=== PATIENT | female | born 1950 | race Caucasian/White ===

== ENCOUNTER 2017-10-29 18:37 | Inpatient (IN) ==
[2017-10-29] MEDS ORDERED: Fluticasone Propionate Nasal 50 MCG/SPRAY BOTTLE NS PRN (18:40)
[2017-10-29] MEDS: *HR* Rivaroxaban 10 MG TABLET PO SCH (19:09)
[2017-10-29] MEDS: Magnesium Oxide 400 MG TABLET PO SCH (20:21)
[2017-10-29] MEDS: traMADol 50 MG TABLET PO PRN (20:21)
[2017-10-29] MEDS: (Omega-3s/Dha/Epa/Fish Oil [Fish Oil 1,200 Mg Softgel]) PO SCH (20:22)
[2017-10-30] MEDS: *HR* OxyCODONE Immed Rel 5 MG TABLET PO PRN ×4 (00:10→19:59)
[2017-10-30] MEDS: traMADol 50 MG TABLET PO PRN ×3 (04:30→15:13)
[2017-10-30] MEDS ORDERED: Ascorbic Acid 500 MG TABLET PO SCH (09:00)
[2017-10-30] MEDS: Cholecalciferol (D-3) 1,000 UNIT TABLET PO SCH (09:22)
[2017-10-30] MEDS: Multivit/Ca/Min/Fe/FA 1 TAB TABLET PO SCH (09:22)
[2017-10-30] MEDS: hydroCHLOROthiazide 25 MG TABLET PO SCH (09:22)
[2017-10-30] MEDS: Loratadine 10 MG TABLET PO SCH (09:22)
[2017-10-30] MEDS: Lisinopril 20 MG TABLET PO SCH (09:22)
[2017-10-30] MEDS: Magnesium Oxide 400 MG TABLET PO SCH ×2 (09:22→19:59)
[2017-10-30] MEDS: OMEGA3S PO SCH (09:23)
[2017-10-30] MEDS: C E ZINC COPPER PO SCH (09:23)
[2017-10-30] MEDS: [UNRECOGNIZED DRUG - OTHER] PO SCH (09:23)
[2017-10-30] MEDS: (Omega-3s/Dha/Epa/Fish Oil [Fish Oil 1,200 Mg Softgel]) PO SCH ×2 (09:23→19:59)
[2017-10-30] MEDS: (Ubidecarenone/Vit E Acetate [Co Q-10 100 Mg Softgel]) PO SCH (09:23)
[2017-10-30] MEDS: LUT PO SCH (09:23)
[2017-10-30] MEDS: Diltiazem CD (24hr) 120 MG CAPSULE PO SCH (09:32)
[2017-10-30] MEDS: Triamcinolone Acet 0.1% CRM 15 GM TUBE TP SCH (09:34)
--- NOTE | 2017-10-30 14:55 | Internal Med History&Physical ---
Date of Encounter: 10/30/17 Time of Encounter: 14:20 Assessment and Plan (1) Status post total hip replacement, left Current visit: No Status: Acute Stable. PT and OT evaluations have been done. She will continue Xarelto for history of AF and DVT prophylaxis. (2) Acute blood loss anemia Current visit: No Status: Acute We will monitor CBC. Check anemia testing in a.m. (3) Atrial fibrillation Current visit: No Status: Chronic Remains in normal sinus rhythm. Continue Xarelto and Rythmol Qualifiers: Atrial fibrillation type: paroxysmal Qualified Code(s): I48.0 - Paroxysmal atrial fibrillation (4) HTN (hypertension) Current visit: No Status: Chronic Continue HCTZ, lisinopril, and diltiazem. Qualifiers: Hypertension type: essential hypertension Qualified Code(s): I10 - Essential (primary) hypertension (5) Gout Current visit: No Status: Chronic Uric acid level was 6.0 on 01/26/2017. Continue allopurinol. Qualifiers: Gout site: unspecified site Gout etiology: unspecified cause Chronicity: unspecified Qualified Code(s): M10.9 - Gout, unspecified Internal Medicine - H&P: HPI Chief complaint: Left hip replacement Admitted From: Hospital to Hospital Transfer Plans for Post Hospital Care: Home History of present illness: Ms. Becker is a 67 year old female who underwent elective left total hip replacement 10/26/2017 by : At [facility]. Her postop course was remarkable from using 2 units packed red blood cells. She was stable otherwise was transferred to [facility] swing bed October 29 for rehabilitation therapy prior to returning to independent living at home. Her [place] skeletal history is significant for previous bilateral carpal tunnel surgeries, left replacement, right hip surgery, right knee surgery, bilateral shoulder surgeries and history of gout. Past Med Surg Social Fam HX - Past Medical History Medical history: arthritis, asthma, atrial fibrillation, GERD, hyperlipidemia, hypertension Psychiatric history: anxiety, depression - Past Surgical History Surgical History: cholecystectomy, knee replacement, orthopedic, other - Social History Smoking Status: Former smoker Smokeless Tobacco Status: No Alcohol use: none Drug use: none - Family History Father Hx Family Cancer: Yes (Leukemia) Mother Hx Family Cardiac Disorders: Yes (CHF) Internal Medicine - H&P: Meds Allopurinol [Zyloprim 100 MG] 100 mg PO DAILY 10/26/17 [History] Ascorbate Calcium [Vitamin C] 500 mg PO DAILY 10/26/17 [History] Atorvastatin [Lipitor] 40 mg PO HS 10/26/17 [History] C,E,Zinc,Copper 11/Ywsxd2v/Lut [Ocuvite Adult 50 Plus Softgel] 1 cap PO DAILY [History] Calcium Carbonate/Vitamin D3 [Calcium 600 + Vit D Tablet] 1 tab PO DAILY [History] Cetirizine HCl [Zyrtec] 10 mg PO DAILY 10/26/17 [History] Esomeprazole Magnesium [Nexium 24Hr] 20 mg PO DAILY 10/26/17 [History] Ferrous Sulfate [Iron] 325 mg PO DAILY 10/26/17 [History] Fluticasone Propionate Nasal [Flonase] 1 spr NS DAILY PRN 10/26/17 [History] Hydrochlorothiazide [Microzide] 12.5 mg PO DAILY 10/26/17 [History] Magnesium Oxide [Magnesium] 400 mg PO BID 10/26/17 [History] Meclizine HCl [Verticalm] 25 mg PO BID PRN 10/26/17 [History] Montelukast [Singulair] 10 mg PO HS 10/26/17 [History] Multivitamin [One Daily Multivitamin] 1 tab PO DAILY 10/26/17 [History] [place]-3S/Dha/Epa/Fish Oil [Fish Oil 1,200 mg Softgel] 1 cap PO BID 10/26/17 [ History] Propafenone [Rhythmol] 150 mg PO Q8H 10/26/17 [History] Quinapril HCl [Accupril] 20 mg PO DAILY 10/26/17 [History] Rivaroxaban [Xarelto] 20 mg PO DAILY 10/26/17 [History] Sertraline [Zoloft] 100 mg PO DAILY 10/26/17 [History] Triamcinolone Acet 0.1% CRM [Kenalog] 1 appl TP DAILY 10/26/17 [History] Ubidecarenone/Vit E Acetate [Co Q-10 100 mg Softgel] 1 cap PO DAILY 10/26/17 [ History] dilTIAZem HCl [Diltiazem 24Hr ER] 120 mg PO DAILY 10/26/17 [History] 3 Allergy/AdvReac Type Severity Reaction Status Date / Time pregabalin [From Lyrica] Allergy See Verified 10/26/17 12:05 Comments All Systems PM: A 10-system review of systems was performed and is negative for pertinent findings except as documented above in the HPI. Review of systems: Gen.: She states her weight has been stable the past few months Cardiovascular: She has history of hypertension. She has had atrial fibrillation with cardioversion 2 in 2017. She is now on Rythmol and has maintained NSR. There is no history of heart failure and echocardiogram 2016 showed LVEF of 55-60% with no significant valvular abnormalities. There was LAE at 4.80 cm. There is no history of DVT or pulmonary embolus Respiratory: She smoked from age [age]. She has no documented chronic lung disease. She has been diagnosed with JABIER but states she cannot tolerate CPAP/ BiPAP. GI: She has had cholecystectomy. She denies disorders of her liver or exocrine pancreas : She denies hematuria dysuria or kidney stones Neurologic: She has had vertigo intermittently for several years. She takes meclizine regularly. She denies large distribution strokes or seizures. Endocrine: She states she is prediabetic but hemoglobin A1c 18 2017 was elevated at 6.3%. He has hyperlipidemia but denies thyroid disease Hematology/oncology: She has developed anemia postoperatively with hemoglobin 8.3 yesterday. She denies internal malignancies or blood disorders Psychiatric: She has anxiety depression. She denies other mental health issues. [place] skeletal: As per history of present illness - Constitutional Vitals: Temp Pulse Resp BP Pulse Ox 98.6 F 75 17 103/68 98 10/29/17 19:08 10/30/17 09:45 10/29/17 19:08 10/29/17 19:08 10/30/17 09:45 Exam: Gen.: She is well-developed well-nourished female resting comfortably in bed who appears in no acute distress HEENT: Head is atraumatic and normocephalic. Eyes: EOMI. There is no scleral icterus. Mouth: Mucosa is moist. Neck: Supple and nontender. There is no thyromegaly or adenopathy noted. Heart: Regular without murmurs gallops or ectopics Lungs: No wheezes or crackles are heard. Abdomen: Soft and nontender. No masses or guarding are noted. Extremities: There is 0-trace edema bilaterally of the dorsum the feet and lower anterior shins. Dorsalis pedis and posttibial pulses are trace to 1+ palpable bilaterally. She has surgical dressing over the left upper lateral thigh area from recent hip surgery. There is a second dressing more proximal from robotic surgery attachment. Neurologic: Mental status: She is talkative and a good historian. Cranial nerves: Smile is symmetric. Forehead wrinkles bilaterally. Tongue protrudes midline. EOMI. Motor: There is no pronator drift. Cerebellar: Finger to nose is intact bilaterally. Skin: Warm and dry
[2017-10-30] MEDS: *HR* Rivaroxaban 10 MG TABLET PO SCH (17:40)
[2017-10-30] MEDS: Ascorbic Acid 500 MG TABLET PO SCH (17:52)
[2017-10-31] MEDS: traMADol 50 MG TABLET PO PRN ×4 (00:56→23:53)
[2017-10-31] MEDS: *HR* OxyCODONE Immed Rel 5 MG TABLET PO PRN ×3 (04:55→22:02)
[2017-10-31] MEDS: Ascorbic Acid 500 MG TABLET PO SCH (04:55)
[2017-10-31 06:29] LABS: Basophils % 0.4 %; Eosinophils # 0.3 K/mcL (0.0-0.6); Eosinophils % 3.2 %; Immature Granulocytes % 1.9 % (0-4); Lymphocytes % 12.1 %; Mean Corpuscular HGB Conc 32.1 g/dL (31.6-35.5); Mean Corpuscular Hemoglobin 28.8 pg (28.0-33.3); Mean Corpuscular Volume 89.5 fL (83.0-100.0); Monocytes # 0.8 K/mcL (0.0-1.3); Monocytes % 9.3 %; Neutrophils # 6.3 K/mcL (1.6-8.9); Platelet Count 184 K/mcL (140-400); Red Blood Count 3.13 M/mcL (3.82-4.97); Red Cell Distribution Width 14.6 % (11.5-14.5); Segmented Neutrophils % 73.1 %
[2017-10-31 06:45] LABS: BUN/Creatinine Ratio 40 (6-26); Blood Urea Nitrogen 31 mg/dL (8-23); Carbon Dioxide 28 mEq/L (23-29); Chloride 101 mEq/L (98-107); Glucose 115 mg/dL (70-105); Osmolality,Calculated 291 (280-300); Potassium 3.7 mEq/L (3.5-5.1); Sodium 137 mEq/L (136-145); eGFR For African Americans > 60 (> 60); eGFR For Non-African Americans > 60 (> 60)
[2017-10-31] MEDS: hydroCHLOROthiazide 25 MG TABLET PO SCH (08:34)
[2017-10-31] MEDS: Cholecalciferol (D-3) 1,000 UNIT TABLET PO SCH (08:34)
[2017-10-31] MEDS: Magnesium Oxide 400 MG TABLET PO SCH ×2 (08:35→20:35)
[2017-10-31] MEDS: Multivit/Ca/Min/Fe/FA 1 TAB TABLET PO SCH (08:35)
[2017-10-31] MEDS: Triamcinolone Acet 0.1% CRM 15 GM TUBE TP SCH (08:35)
[2017-10-31] MEDS: Lisinopril 20 MG TABLET PO SCH (08:35)
[2017-10-31] MEDS: Diltiazem CD (24hr) 120 MG CAPSULE PO SCH (08:35)
[2017-10-31] MEDS: Loratadine 10 MG TABLET PO SCH (08:35)
[2017-10-31] MEDS: (Ubidecarenone/Vit E Acetate [Co Q-10 100 Mg Softgel]) PO SCH (08:36)
[2017-10-31] MEDS: C E ZINC COPPER PO SCH (08:36)
[2017-10-31] MEDS: (Omega-3s/Dha/Epa/Fish Oil [Fish Oil 1,200 Mg Softgel]) PO SCH ×2 (08:36→20:35)
[2017-10-31] MEDS: [UNRECOGNIZED DRUG - OTHER] PO SCH (08:36)
[2017-10-31] MEDS: OMEGA3S PO SCH (08:36)
[2017-10-31] MEDS: LUT PO SCH (08:36)
[2017-10-31 09:47] LABS: % Iron Saturation 13 % (15-50); Ferritin 857 ng/ml (10-120); Iron 27 mcg/dL (50-170); Transferrin 154 mg/dL (203-362)
[2017-10-31 10:02] LABS: Vitamin B12 244 pg/mL (250-1100)
[2017-10-31 10:05] LABS: Folate > 22.3 ng/mL (3.0-16.0)
[2017-10-31] MEDS: *HR* Rivaroxaban 10 MG TABLET PO SCH (18:03)
--- NOTE | 2017-10-31 18:45 | Internal Med Progress Note ---
Date of Encounter: 10/31/17 Time of Encounter: 18:35 - Assessment and plan (1) Status post total hip replacement, left Current Visit: No Status: Acute Assessment and plan: October 31. Continue Xarelto and therapeutic interventions. (2) Acute blood loss anemia Current Visit: No Status: Acute Assessment and plan: October 31. Hemoglobin improved to 9.0. Anemia testing showed iron 27, transferrin saturation 13%, transferrin 154, ferritin 857, B12 244, and folate greater than 22.3. We will give B12 supplement and continue ferrous sulfate with vitamin C. (3) Atrial fibrillation Current Visit: No Status: Chronic Assessment and plan: October 31. Continue Xarelto Qualifiers: Atrial fibrillation type: paroxysmal Qualified Code(s): I48.0 - Paroxysmal atrial fibrillation (4) HTN (hypertension) Current Visit: No Status: Chronic Assessment and plan: October 31. Continue HCTZ, lisinopril, and diltiazem. Qualifiers: Hypertension type: essential hypertension Qualified Code(s): I10 - Essential (primary) hypertension (5) Gout Current Visit: No Status: Chronic Assessment and plan: October 31. Continue allopurinol Qualifiers: Gout site: unspecified site Gout etiology: unspecified cause Chronicity: unspecified Qualified Code(s): M10.9 - Gout, unspecified - Subjective Interval history: October 31. She has no specific complaints. She noticed bleeding when she scratched her scalp. She has also noticed additional bruising on her legs. - Constitutional Vitals: Temp Pulse Resp BP Pulse Ox 98.9 F 72 18 116/64 96 10/31/17 06:00 10/31/17 06:00 10/31/17 06:00 10/31/17 06:00 10/31/17 06:00 Exam: She is resting comfortably in bed and appears in no acute distress. Her scalp was not actively bleeding. There is white cream at the site where she scratched. She has expected evolutionary changes in ecchymoses from surgery on her legs including a left mid lower medial thigh ecchymosis. I reviewed her medications. I discussed pertinent lab findings with her. Internal Medicine: Result - Labs CBC & Chem 7: 10/31/17 05:44 10/31/17 05:44 Labs: Short CBC 10/31/17 Range/Units 05:44 WBC 8.6 (4.3-11.1) K/mcL Hgb 9.0 L (11.5-15.4) g/dL Hct 28.0 L (35.3-44.9) % Plt Count 184 (140-400) K/mcL Neutrophils # 6.3 (1.6-8.9) K/mcL [facility] 10/31/17 05:44 Sodium 137 Potassium 3.7 Chloride 101 Carbon Dioxide 28 BUN 31 H Creatinine 0.77 Glucose 115 H Calcium 9.0 Consult Discharge Plan - Plan Referrals: Nelson Little DO [Primary Care Provider] - 1 week
[2017-10-31] MEDS: Cyanocobalamin (B-12) 1,000 MCG TABLET PO SCH (20:35)
[2017-11-01 00:17] LABS: Magnesium 1.7 mg/dL (1.6-2.6)
[2017-11-01] MEDS: *HR* OxyCODONE Immed Rel 5 MG TABLET PO PRN ×3 (03:43→23:33)
[2017-11-01] MEDS: traMADol 50 MG TABLET PO PRN ×3 (05:53→20:05)
[2017-11-01] MEDS: Ascorbic Acid 500 MG TABLET PO SCH (05:53)
[2017-11-01] MEDS: Multivit/Ca/Min/Fe/FA 1 TAB TABLET PO SCH (08:59)
[2017-11-01] MEDS: Lisinopril 20 MG TABLET PO SCH (08:59)
[2017-11-01] MEDS: Cyanocobalamin (B-12) 1,000 MCG TABLET PO SCH (08:59)
[2017-11-01] MEDS: Magnesium Oxide 400 MG TABLET PO SCH ×2 (08:59→20:05)
[2017-11-01] MEDS: hydroCHLOROthiazide 25 MG TABLET PO SCH (09:00)
[2017-11-01] MEDS: Diltiazem CD (24hr) 120 MG CAPSULE PO SCH (09:00)
[2017-11-01] MEDS: Loratadine 10 MG TABLET PO SCH (09:00)
[2017-11-01] MEDS: Cholecalciferol (D-3) 1,000 UNIT TABLET PO SCH (09:01)
[2017-11-01] MEDS: [UNRECOGNIZED DRUG - OTHER] PO SCH (09:01)
[2017-11-01] MEDS: OMEGA3S PO SCH (09:01)
[2017-11-01] MEDS: LUT PO SCH (09:01)
[2017-11-01] MEDS: C E ZINC COPPER PO SCH (09:01)
[2017-11-01] MEDS: (Omega-3s/Dha/Epa/Fish Oil [Fish Oil 1,200 Mg Softgel]) PO SCH ×2 (09:01→23:32)
[2017-11-01] MEDS: (Ubidecarenone/Vit E Acetate [Co Q-10 100 Mg Softgel]) PO SCH (09:01)
[2017-11-01] MEDS: Triamcinolone Acet 0.1% CRM 15 GM TUBE TP SCH (09:01)
[2017-11-01] MEDS: *HR* Rivaroxaban 10 MG TABLET PO SCH (18:38)
[2017-11-02] MEDS: traMADol 50 MG TABLET PO PRN ×2 (03:13→09:00)
[2017-11-02] MEDS: *HR* OxyCODONE Immed Rel 5 MG TABLET PO PRN ×2 (05:25→21:57)
[2017-11-02] MEDS: Ascorbic Acid 500 MG TABLET PO SCH (06:41)
[2017-11-02] MEDS: Cholecalciferol (D-3) 1,000 UNIT TABLET PO SCH (08:59)
[2017-11-02] MEDS: Loratadine 10 MG TABLET PO SCH (08:59)
[2017-11-02] MEDS: Diltiazem CD (24hr) 120 MG CAPSULE PO SCH (08:59)
[2017-11-02] MEDS: Multivit/Ca/Min/Fe/FA 1 TAB TABLET PO SCH (08:59)
[2017-11-02] MEDS: Cyanocobalamin (B-12) 1,000 MCG TABLET PO SCH (09:00)
[2017-11-02] MEDS: Lisinopril 20 MG TABLET PO SCH (09:00)
[2017-11-02] MEDS: Magnesium Oxide 400 MG TABLET PO SCH ×2 (09:00→19:54)
[2017-11-02] MEDS: hydroCHLOROthiazide 25 MG TABLET PO SCH (09:00)
[2017-11-02] MEDS: Triamcinolone Acet 0.1% CRM 15 GM TUBE TP SCH (09:01)
[2017-11-02] MEDS: (Ubidecarenone/Vit E Acetate [Co Q-10 100 Mg Softgel]) PO SCH (09:04)
[2017-11-02] MEDS: (Omega-3s/Dha/Epa/Fish Oil [Fish Oil 1,200 Mg Softgel]) PO SCH ×2 (09:04→23:11)
[2017-11-02] MEDS: C E ZINC COPPER PO SCH (09:05)
[2017-11-02] MEDS: LUT PO SCH (09:05)
[2017-11-02] MEDS: [UNRECOGNIZED DRUG - OTHER] PO SCH (09:05)
[2017-11-02] MEDS: OMEGA3S PO SCH (09:05)
--- NOTE | 2017-11-02 12:23 | Internal Med Progress Note ---
Date of Encounter: 11/02/17 Time of Encounter: 12:15 - Assessment and plan (1) Status post total hip replacement, left Current Visit: No Status: Acute Assessment and plan: October 31. Continue Xarelto and therapeutic interventions. November 02. Will add scheduled Duragesic patch for pain. Continue prn tramadol and oxycodone as presently ordered. (2) Acute blood loss anemia Current Visit: No Status: Acute Assessment and plan: October 31. Hemoglobin improved to 9.0. Anemia testing showed iron 27, transferrin saturation 13%, transferrin 154, ferritin 857, B12 244, and folate greater than 22.3. We will give B12 supplement and continue ferrous sulfate with vitamin C. November 02. Recheck labs in a.m. (3) Atrial fibrillation Current Visit: No Status: Chronic Assessment and plan: October 31. Continue Xarelto Qualifiers: Atrial fibrillation type: paroxysmal Qualified Code(s): I48.0 - Paroxysmal atrial fibrillation (4) HTN (hypertension) Current Visit: No Status: Chronic Assessment and plan: October 31. Continue HCTZ, lisinopril, and diltiazem. Qualifiers: Hypertension type: essential hypertension Qualified Code(s): I10 - Essential (primary) hypertension (5) Gout Current Visit: No Status: Chronic Assessment and plan: October 31. Continue allopurinol Qualifiers: Gout site: unspecified site Gout etiology: unspecified cause Chronicity: unspecified Qualified Code(s): M10.9 - Gout, unspecified (6) Urinary frequency Current Visit: Yes Status: Acute Assessment and plan: Will order UA with C/S and check postvoid residual volume. - Subjective Interval history: October 31. She has no specific complaints. She noticed bleeding when she scratched her scalp. She has also noticed additional bruising on her legs. November 02. She complains of constant pain never less than 7/10 in her left hip. She has noted no further bleeding. She also complains of urinary frequency. - Constitutional Vitals: Temp Pulse Resp BP Pulse Ox 97.6 F 64 16 115/58 96 11/02/17 06:27 11/02/17 06:27 11/02/17 06:27 11/02/17 06:27 11/02/17 06:27 Exam: She is sitting in a chair at bedside. Her affect is overall cheerful. She has trace edema in her lower anterior shins. Ecchymosis in her left medial thigh shows expected evolution changes. I reviewed her medications and past lab results. Internal Medicine: Result - Labs CBC & Chem 7: 10/31/17 05:44 10/31/17 05:44 Consult Discharge Plan - Plan Referrals: Nelson Little DO [Primary Care Provider] - 1 week
[2017-11-02 15:07] LABS: Bilirubin,Urine Negative (Negative); Blood,Urine Negative (Negative); Clarity,Urine Clear (Clear); Color,Urine Yellow (Yellow); Glucose,Urine (UA) Normal (Normal); Ketones,Urine Negative (Negative); Leukocyte Esterase,Urine Negative (Negative); Nitrite,Urine Negative (Negative); PH,Urine 5.5 pH Units (5.0-8.0); Protein,Urine Negative (Neg-Trace); Urobilinogen,Urine Normal (Normal)
[2017-11-02] MEDS: *HR* Rivaroxaban 10 MG TABLET PO SCH (16:53)
[2017-11-02] MEDS: *HR* FentaNYL PATCH 12 MCG PATCH TD SCH (16:54)
[2017-11-03] MEDS: traMADol 50 MG TABLET PO PRN ×3 (03:19→17:19)
[2017-11-03 05:37] LABS: Basophils # 0.1 K/mcL (0.0-0.2); Basophils % 0.5 %; Eosinophils # 0.3 K/mcL (0.0-0.6); Eosinophils % 3.3 %; Hematocrit 29.7 % (35.3-44.9); Hemoglobin 9.5 g/dL (11.5-15.4); Immature Granulocytes % 3.3 % (0-4); Lymphocytes # 1.3 K/mcL (0.6-4.6); Lymphocytes % 13.7 %; Mean Corpuscular Hemoglobin 28.8 pg (28.0-33.3); Mean Platelet Volume 11.4 fL (9.4-12.4); Monocytes # 0.7 K/mcL (0.0-1.3); Monocytes % 7.7 %; Neutrophils # 6.6 K/mcL (1.6-8.9); Platelet Count 277 K/mcL (140-400); Red Cell Distribution Width 14.3 % (11.5-14.5); Segmented Neutrophils % 71.5 %
[2017-11-03 05:57] LABS: BUN/Creatinine Ratio 27 (6-26); Blood Urea Nitrogen 19 mg/dL (8-23); Calcium 9.2 mg/dL (8.6-10.3); Carbon Dioxide 31 mEq/L (23-29); Chloride 101 mEq/L (98-107); Glucose 116 mg/dL (70-105); Magnesium 1.7 mg/dL (1.6-2.6); Osmolality,Calculated 291 (280-300); Potassium 4.2 mEq/L (3.5-5.1); Sodium 139 mEq/L (136-145); eGFR For African Americans > 60 (> 60); eGFR For Non-African Americans > 60 (> 60)
[2017-11-03] MEDS: Ascorbic Acid 500 MG TABLET PO SCH (06:53)
[2017-11-03] MEDS: *HR* OxyCODONE Immed Rel 5 MG TABLET PO PRN ×3 (06:53→20:24)
[2017-11-03] MEDS: Magnesium Oxide 400 MG TABLET PO SCH ×2 (08:49→20:24)
[2017-11-03] MEDS: Cholecalciferol (D-3) 1,000 UNIT TABLET PO SCH (08:49)
[2017-11-03] MEDS: Lisinopril 20 MG TABLET PO SCH (08:49)
[2017-11-03] MEDS: Multivit/Ca/Min/Fe/FA 1 TAB TABLET PO SCH (08:49)
[2017-11-03] MEDS: Diltiazem CD (24hr) 120 MG CAPSULE PO SCH (08:50)
[2017-11-03] MEDS: hydroCHLOROthiazide 25 MG TABLET PO SCH (08:50)
[2017-11-03] MEDS: Loratadine 10 MG TABLET PO SCH (08:50)
[2017-11-03] MEDS: Cyanocobalamin (B-12) 1,000 MCG TABLET PO SCH (08:51)
[2017-11-03] MEDS: Triamcinolone Acet 0.1% CRM 15 GM TUBE TP SCH (08:51)
[2017-11-03] MEDS: (Ubidecarenone/Vit E Acetate [Co Q-10 100 Mg Softgel]) PO SCH (11:00)
[2017-11-03] MEDS: [UNRECOGNIZED DRUG - OTHER] PO SCH (11:01)
[2017-11-03] MEDS: C E ZINC COPPER PO SCH (11:01)
[2017-11-03] MEDS: (Omega-3s/Dha/Epa/Fish Oil [Fish Oil 1,200 Mg Softgel]) PO SCH ×2 (11:01→20:24)
[2017-11-03] MEDS: OMEGA3S PO SCH (11:01)
[2017-11-03] MEDS: LUT PO SCH (11:01)
--- NOTE | 2017-11-03 12:06 | Internal Med Progress Note ---
Date of Encounter: 11/03/17 Time of Encounter: 11:50 - Assessment and plan (1) Status post total hip replacement, left Current Visit: No Status: Acute Assessment and plan: October 31. Continue Xarelto and therapeutic interventions. November 02. Will add scheduled Duragesic patch for pain. Continue prn tramadol and oxycodone as presently ordered. November 03. Pain has significantly lessened with Duragesic patch. Continue present regimen. (2) Acute blood loss anemia Current Visit: No Status: Acute Assessment and plan: October 31. Hemoglobin improved to 9.0. Anemia testing showed iron 27, transferrin saturation 13%, transferrin 154, ferritin 857, B12 244, and folate greater than 22.3. We will give B12 supplement and continue ferrous sulfate with vitamin C. November 02. Recheck labs in a.m. November 03. Hemoglobin improved to 9.5. Continue present regimen. (3) Atrial fibrillation Current Visit: No Status: Chronic Assessment and plan: October 31. Continue Xarelto Qualifiers: Atrial fibrillation type: paroxysmal Qualified Code(s): I48.0 - Paroxysmal atrial fibrillation (4) HTN (hypertension) Current Visit: No Status: Chronic Assessment and plan: October 31. Continue HCTZ, lisinopril, and diltiazem. Qualifiers: Hypertension type: essential hypertension Qualified Code(s): I10 - Essential (primary) hypertension (5) Gout Current Visit: No Status: Chronic Assessment and plan: October 31. Continue allopurinol Qualifiers: Gout site: unspecified site Gout etiology: unspecified cause Chronicity: unspecified Qualified Code(s): M10.9 - Gout, unspecified (6) Urinary frequency Current Visit: Yes Status: Acute Assessment and plan: November 02. Will order UA with C/S and check postvoid residual volume. November 03. UA was unremarkable. Continue Ditropan prn. - Subjective Interval history: October 31. She has no specific complaints. She noticed bleeding when she scratched her scalp. She has also noticed additional bruising on her legs. November 02. She complains of constant pain never less than 7/10 in her left hip. She has noted no further bleeding. She also complains of urinary frequency. November 03. She has no new complaints and feels better. Post void residual was 53 mL yesterday. She had resolution of bladder spasm with single dose of Ditropan. - Constitutional Vitals: Temp Pulse Resp BP Pulse Ox 98.6 F 73 18 117/64 95 11/03/17 06:00 11/03/17 06:00 11/03/17 06:00 11/03/17 06:00 11/03/17 06:00 Exam: She is resting comfortably in bed and appears in no acute distress. Her affect is bright and cheerful. I reviewed her medications and lab results. Internal Medicine: Result - Labs CBC & Chem 7: 11/03/17 05:05 11/03/17 05:05 Labs: Short CBC 11/03/17 Range/Units 05:05 WBC 9.2 (4.3-11.1) K/mcL Hgb 9.5 L (11.5-15.4) g/dL Hct 29.7 L (35.3-44.9) % Plt Count 277 D (140-400) K/mcL Neutrophils # 6.6 (1.6-8.9) K/mcL BMP 11/03/17 05:05 Sodium 139 Potassium 4.2 Chloride 101 Carbon Dioxide 31 H BUN 19 Creatinine 0.71 Glucose 116 H Calcium 9.2 Urine 11/02/17 Range/Units 14:04 Urine Color Yellow (Yellow) Urine Clarity Clear (Clear) Urine pH 5.5 (5.0-8.0) pH Units Ur Specific [place] 1.010 (1.010-1.025) Urine Protein Negative (Neg-Trace) mg/dL Urine Glucose (UA) Normal (Normal) mg/dL Consult Discharge Plan - Plan Referrals: Nelson Little DO [Primary Care Provider] - 1 week
[2017-11-03] MEDS: *HR* Rivaroxaban 10 MG TABLET PO SCH (17:05)
[2017-11-04] MEDS: traMADol 50 MG TABLET PO PRN ×4 (00:30→21:27)
[2017-11-04] MEDS: *HR* OxyCODONE Immed Rel 5 MG TABLET PO PRN ×4 (03:42→23:50)
[2017-11-04] MEDS: Ascorbic Acid 500 MG TABLET PO SCH (05:48)
[2017-11-04] MEDS: Loratadine 10 MG TABLET PO SCH (09:34)
[2017-11-04] MEDS: Diltiazem CD (24hr) 120 MG CAPSULE PO SCH (09:34)
[2017-11-04] MEDS: Multivit/Ca/Min/Fe/FA 1 TAB TABLET PO SCH (09:34)
[2017-11-04] MEDS: hydroCHLOROthiazide 25 MG TABLET PO SCH (09:34)
[2017-11-04] MEDS: Magnesium Oxide 400 MG TABLET PO SCH ×2 (09:35→21:27)
[2017-11-04] MEDS: Cholecalciferol (D-3) 1,000 UNIT TABLET PO SCH (09:35)
[2017-11-04] MEDS: Lisinopril 20 MG TABLET PO SCH (09:35)
[2017-11-04] MEDS: Cyanocobalamin (B-12) 1,000 MCG TABLET PO SCH (09:35)
[2017-11-04] MEDS: (Ubidecarenone/Vit E Acetate [Co Q-10 100 Mg Softgel]) PO SCH (09:42)
[2017-11-04] MEDS: LUT PO SCH (09:42)
[2017-11-04] MEDS: C E ZINC COPPER PO SCH (09:42)
[2017-11-04] MEDS: Triamcinolone Acet 0.1% CRM 15 GM TUBE TP SCH (09:42)
[2017-11-04] MEDS: [UNRECOGNIZED DRUG - OTHER] PO SCH (09:42)
[2017-11-04] MEDS: (Omega-3s/Dha/Epa/Fish Oil [Fish Oil 1,200 Mg Softgel]) PO SCH ×2 (09:42→21:28)
[2017-11-04] MEDS: OMEGA3S PO SCH (09:42)
[2017-11-04] MEDS: *HR* Rivaroxaban 10 MG TABLET PO SCH (17:48)
[2017-11-05] MEDS: Ascorbic Acid 500 MG TABLET PO SCH (06:04)
[2017-11-05] MEDS: *HR* OxyCODONE Immed Rel 5 MG TABLET PO PRN ×3 (06:04→20:56)
[2017-11-05] MEDS: Loratadine 10 MG TABLET PO SCH (08:02)
[2017-11-05] MEDS: Cholecalciferol (D-3) 1,000 UNIT TABLET PO SCH (08:02)
[2017-11-05] MEDS: Lisinopril 20 MG TABLET PO SCH (08:02)
[2017-11-05] MEDS: Cyanocobalamin (B-12) 1,000 MCG TABLET PO SCH (08:02)
[2017-11-05] MEDS: hydroCHLOROthiazide 25 MG TABLET PO SCH (08:02)
[2017-11-05] MEDS: Multivit/Ca/Min/Fe/FA 1 TAB TABLET PO SCH (08:05)
[2017-11-05] MEDS: Diltiazem CD (24hr) 120 MG CAPSULE PO SCH (08:14)
[2017-11-05] MEDS: Magnesium Oxide 400 MG TABLET PO SCH ×2 (08:16→20:49)
[2017-11-05] MEDS: OMEGA3S PO SCH (08:16)
[2017-11-05] MEDS: Triamcinolone Acet 0.1% CRM 15 GM TUBE TP SCH (08:16)
[2017-11-05] MEDS: LUT PO SCH (08:16)
[2017-11-05] MEDS: [UNRECOGNIZED DRUG - OTHER] PO SCH (08:16)
[2017-11-05] MEDS: C E ZINC COPPER PO SCH (08:16)
[2017-11-05] MEDS: (Omega-3s/Dha/Epa/Fish Oil [Fish Oil 1,200 Mg Softgel]) PO SCH ×2 (08:17→20:49)
[2017-11-05] MEDS: (Ubidecarenone/Vit E Acetate [Co Q-10 100 Mg Softgel]) PO SCH (08:17)
[2017-11-05] MEDS: *HR* FentaNYL PATCH 12 MCG PATCH TD SCH (13:13)
[2017-11-05] MEDS ORDERED: Lisinopril 20 MG TABLET PO SCH (14:59)
--- NOTE | 2017-11-05 14:59 | Internal Med Progress Note ---
Date of Encounter: 11/05/17 Time of Encounter: 14:50 - Assessment and plan (1) Status post total hip replacement, left Current Visit: No Status: Acute Assessment and plan: October 31. Continue Xarelto and therapeutic interventions. November 02. Will add scheduled Duragesic patch for pain. Continue prn tramadol and oxycodone as presently ordered. November 03. Pain has significantly lessened with Duragesic patch. Continue present regimen. (2) Acute blood loss anemia Current Visit: No Status: Acute Assessment and plan: October 31. Hemoglobin improved to 9.0. Anemia testing showed iron 27, transferrin saturation 13%, transferrin 154, ferritin 857, B12 244, and folate greater than 22.3. We will give B12 supplement and continue ferrous sulfate with vitamin C. November 02. Recheck labs in a.m. November 03. Hemoglobin improved to 9.5. Continue present regimen. (3) Atrial fibrillation Current Visit: No Status: Chronic Assessment and plan: October 31. Continue Xarelto Qualifiers: Atrial fibrillation type: paroxysmal Qualified Code(s): I48.0 - Paroxysmal atrial fibrillation (4) HTN (hypertension) Current Visit: No Status: Chronic Assessment and plan: October 31. Continue HCTZ, lisinopril, and diltiazem. November 05. Blood pressure borderline low. We will decrease lisinopril to 10 mg daily. Qualifiers: Hypertension type: essential hypertension Qualified Code(s): I10 - Essential (primary) hypertension (5) Gout Current Visit: No Status: Chronic Assessment and plan: October 31. Continue allopurinol Qualifiers: Gout site: unspecified site Gout etiology: unspecified cause Chronicity: unspecified Qualified Code(s): M10.9 - Gout, unspecified (6) Urinary frequency Current Visit: Yes Status: Acute Assessment and plan: November 02. Will order UA with C/S and check postvoid residual volume. November 03. UA was unremarkable. Continue Ditropan prn. - Subjective Interval history: October 31. She has no specific complaints. She noticed bleeding when she scratched her scalp. She has also noticed additional bruising on her legs. November 02. She complains of constant pain never less than 7/10 in her left hip. She has noted no further bleeding. She also complains of urinary frequency. November 03. She has no new complaints and feels better. Post void residual was 53 mL yesterday. She had resolution of bladder spasm with single dose of Ditropan. November 05. She has no new complaints and feels better. She has had no further bladder spasms. She states her pain has lessened. - Constitutional Vitals: Temp Pulse Resp BP Pulse Ox 97.8 F 66 16 95/45 98 11/04/17 19:06 11/04/17 19:06 11/04/17 19:06 11/04/17 19:06 11/04/17 19:06 Exam: She is resting comfortably in bed and appears in no acute distress. Her affect is bright and cheerful. I reviewed her medications and lab results. Internal Medicine: Result - Labs CBC & Chem 7: 11/03/17 05:05 11/03/17 05:05 Consult Discharge Plan - Plan Referrals: Nelson Little DO [Primary Care Provider] - 1 week
[2017-11-05] MEDS: *HR* Rivaroxaban 10 MG TABLET PO SCH (16:51)
[2017-11-06] MEDS: *HR* OxyCODONE Immed Rel 5 MG TABLET PO PRN ×3 (06:30→20:27)
[2017-11-06] MEDS: Ascorbic Acid 500 MG TABLET PO SCH (06:31)
[2017-11-06] MEDS: Cholecalciferol (D-3) 1,000 UNIT TABLET PO SCH (08:36)
[2017-11-06] MEDS: Multivit/Ca/Min/Fe/FA 1 TAB TABLET PO SCH (08:38)
[2017-11-06] MEDS: hydroCHLOROthiazide 25 MG TABLET PO SCH (08:38)
[2017-11-06] MEDS: Diltiazem CD (24hr) 120 MG CAPSULE PO SCH (08:39)
[2017-11-06] MEDS: traMADol 50 MG TABLET PO PRN ×2 (08:39→23:44)
[2017-11-06] MEDS: Cyanocobalamin (B-12) 1,000 MCG TABLET PO SCH (08:39)
[2017-11-06] MEDS: LUT PO SCH (08:40)
[2017-11-06] MEDS: [UNRECOGNIZED DRUG - OTHER] PO SCH (08:40)
[2017-11-06] MEDS: OMEGA3S PO SCH (08:40)
[2017-11-06] MEDS: Triamcinolone Acet 0.1% CRM 15 GM TUBE TP SCH (08:40)
[2017-11-06] MEDS: Magnesium Oxide 400 MG TABLET PO SCH ×2 (08:40→20:27)
[2017-11-06] MEDS: (Omega-3s/Dha/Epa/Fish Oil [Fish Oil 1,200 Mg Softgel]) PO SCH ×2 (08:40→20:28)
[2017-11-06] MEDS: Loratadine 10 MG TABLET PO SCH (08:40)
[2017-11-06] MEDS: C E ZINC COPPER PO SCH (08:40)
[2017-11-06] MEDS: (Ubidecarenone/Vit E Acetate [Co Q-10 100 Mg Softgel]) PO SCH (08:41)
[2017-11-06] MEDS: *HR* Rivaroxaban 10 MG TABLET PO SCH (17:59)
[2017-11-07] MEDS: Ascorbic Acid 500 MG TABLET PO SCH (06:31)
[2017-11-07] MEDS: traMADol 50 MG TABLET PO PRN ×2 (06:36→13:56)
[2017-11-07] MEDS: Cholecalciferol (D-3) 1,000 UNIT TABLET PO SCH (10:46)
[2017-11-07] MEDS: Loratadine 10 MG TABLET PO SCH (10:46)
[2017-11-07] MEDS: Magnesium Oxide 400 MG TABLET PO SCH ×2 (10:46→20:52)
[2017-11-07] MEDS: hydroCHLOROthiazide 25 MG TABLET PO SCH (10:47)
[2017-11-07] MEDS: Cyanocobalamin (B-12) 1,000 MCG TABLET PO SCH (10:47)
[2017-11-07] MEDS: Multivit/Ca/Min/Fe/FA 1 TAB TABLET PO SCH (10:47)
[2017-11-07] MEDS: Diltiazem CD (24hr) 120 MG CAPSULE PO SCH (10:47)
[2017-11-07] MEDS: LUT PO SCH (10:48)
[2017-11-07] MEDS: OMEGA3S PO SCH (10:48)
[2017-11-07] MEDS: Triamcinolone Acet 0.1% CRM 15 GM TUBE TP SCH (10:48)
[2017-11-07] MEDS: [UNRECOGNIZED DRUG - OTHER] PO SCH (10:48)
[2017-11-07] MEDS: (Omega-3s/Dha/Epa/Fish Oil [Fish Oil 1,200 Mg Softgel]) PO SCH ×2 (10:48→20:53)
[2017-11-07] MEDS: C E ZINC COPPER PO SCH (10:48)
[2017-11-07] MEDS: (Ubidecarenone/Vit E Acetate [Co Q-10 100 Mg Softgel]) PO SCH (10:49)
[2017-11-07] MEDS: *HR* OxyCODONE Immed Rel 5 MG TABLET PO PRN ×2 (12:25→20:53)
[2017-11-07] MEDS: valACYclovir 500 MG TABLET PO SCH (15:32)
[2017-11-07] MEDS: *HR* Rivaroxaban 10 MG TABLET PO SCH (18:15)
[2017-11-08] MEDS: valACYclovir 500 MG TABLET PO SCH ×3 (00:57→17:48)
[2017-11-08] MEDS: traMADol 50 MG TABLET PO PRN ×2 (00:57→14:14)
[2017-11-08] MEDS: *HR* OxyCODONE Immed Rel 5 MG TABLET PO PRN (06:43)
[2017-11-08] MEDS: Ascorbic Acid 500 MG TABLET PO SCH (06:43)
[2017-11-08] MEDS: Loratadine 10 MG TABLET PO SCH (08:57)
[2017-11-08] MEDS: Diltiazem CD (24hr) 120 MG CAPSULE PO SCH (08:57)
[2017-11-08] MEDS: *HR* FentaNYL PATCH 12 MCG PATCH TD SCH (08:58)
[2017-11-08] MEDS: hydroCHLOROthiazide 25 MG TABLET PO SCH (08:58)
[2017-11-08] MEDS: Magnesium Oxide 400 MG TABLET PO SCH ×2 (08:59→21:18)
[2017-11-08] MEDS: (Omega-3s/Dha/Epa/Fish Oil [Fish Oil 1,200 Mg Softgel]) PO SCH ×2 (08:59→21:14)
[2017-11-08] MEDS: OMEGA3S PO SCH (08:59)
[2017-11-08] MEDS: [UNRECOGNIZED DRUG - OTHER] PO SCH (08:59)
[2017-11-08] MEDS: Triamcinolone Acet 0.1% CRM 15 GM TUBE TP SCH (08:59)
[2017-11-08] MEDS: C E ZINC COPPER PO SCH (08:59)
[2017-11-08] MEDS: LUT PO SCH (08:59)
[2017-11-08] MEDS: Cyanocobalamin (B-12) 1,000 MCG TABLET PO SCH (09:00)
[2017-11-08] MEDS: (Ubidecarenone/Vit E Acetate [Co Q-10 100 Mg Softgel]) PO SCH (09:00)
[2017-11-08] MEDS: Multivit/Ca/Min/Fe/FA 1 TAB TABLET PO SCH (09:00)
[2017-11-08] MEDS: Cholecalciferol (D-3) 1,000 UNIT TABLET PO SCH (09:00)
--- NOTE | 2017-11-08 16:53 | Internal Med Progress Note ---
Date of Encounter: 11/08/17 Time of Encounter: 16:40 - Assessment and plan (1) Status post total hip replacement, left Current Visit: No Status: Acute Assessment and plan: October 31. Continue Xarelto and therapeutic interventions. November 02. Will add scheduled Duragesic patch for pain. Continue prn tramadol and oxycodone as presently ordered. November 03. Pain has significantly lessened with Duragesic patch. Continue present regimen. November 08. Continue present treatment. Anticipate discharge home in 2 days. (2) Acute blood loss anemia Current Visit: No Status: Acute Assessment and plan: October 31. Hemoglobin improved to 9.0. Anemia testing showed iron 27, transferrin saturation 13%, transferrin 154, ferritin 857, B12 244, and folate greater than 22.3. We will give B12 supplement and continue ferrous sulfate with vitamin C. November 02. Recheck labs in a.m. November 03. Hemoglobin improved to 9.5. Continue present regimen. (3) Atrial fibrillation Current Visit: No Status: Chronic Assessment and plan: October 31. Continue Xarelto Qualifiers: Atrial fibrillation type: paroxysmal Qualified Code(s): I48.0 - Paroxysmal atrial fibrillation (4) HTN (hypertension) Current Visit: No Status: Chronic Assessment and plan: October 31. Continue HCTZ, lisinopril, and diltiazem. November 05. Blood pressure borderline low. We will decrease lisinopril to 10 mg daily. November 08. Blood pressure stable on present regimen. Continue. Qualifiers: Hypertension type: essential hypertension Qualified Code(s): I10 - Essential (primary) hypertension (5) Gout Current Visit: No Status: Chronic Assessment and plan: October 31. Continue allopurinol Qualifiers: Gout site: unspecified site Gout etiology: unspecified cause Chronicity: unspecified Qualified Code(s): M10.9 - Gout, unspecified (6) Urinary frequency Current Visit: Yes Status: Acute Assessment and plan: November 02. Will order UA with C/S and check postvoid residual volume. November 03. UA was unremarkable. Continue Ditropan prn. - Subjective Interval history: October 31. She has no specific complaints. She noticed bleeding when she scratched her scalp. She has also noticed additional bruising on her legs. November 02. She complains of constant pain never less than 7/10 in her left hip. She has noted no further bleeding. She also complains of urinary frequency. November 03. She has no new complaints and feels better. Post void residual was 53 mL yesterday. She had resolution of bladder spasm with single dose of Ditropan. November 05. She has no new complaints and feels better. She has had no further bladder spasms. She states her pain has lessened. November 08. She has no new complaints and states she is nearly pain-free now. - Constitutional Vitals: Temp Pulse Resp BP Pulse Ox 97.6 F 60 20 114/53 98 11/08/17 14:11 11/08/17 14:11 11/08/17 14:11 11/08/17 14:11 11/08/17 14:11 Exam: She is resting comfortably in bed and appears in no acute distress. Her affect is bright and cheerful. I reviewed her indications and lab results. Internal Medicine: Result - Labs CBC & Chem 7: 11/03/17 05:05 11/03/17 05:05 Consult Discharge Plan - Plan Referrals: Nelson Little DO [Primary Care Provider] - 1 week
[2017-11-08] MEDS: *HR* Rivaroxaban 10 MG TABLET PO SCH (17:47)
[2017-11-09] MEDS: traMADol 50 MG TABLET PO PRN ×3 (00:21→16:24)
[2017-11-09] MEDS: valACYclovir 500 MG TABLET PO SCH ×3 (00:21→20:20)
[2017-11-09] MEDS: *HR* OxyCODONE Immed Rel 5 MG TABLET PO PRN ×3 (02:51→20:18)
[2017-11-09] MEDS: Ascorbic Acid 500 MG TABLET PO SCH (05:35)
[2017-11-09] MEDS: Cholecalciferol (D-3) 1,000 UNIT TABLET PO SCH (08:42)
[2017-11-09] MEDS: Loratadine 10 MG TABLET PO SCH (08:42)
[2017-11-09] MEDS: Magnesium Oxide 400 MG TABLET PO SCH ×2 (08:42→20:18)
[2017-11-09] MEDS: Multivit/Ca/Min/Fe/FA 1 TAB TABLET PO SCH (08:42)
[2017-11-09] MEDS: OMEGA3S PO SCH (08:43)
[2017-11-09] MEDS: [UNRECOGNIZED DRUG - OTHER] PO SCH (08:43)
[2017-11-09] MEDS: Triamcinolone Acet 0.1% CRM 15 GM TUBE TP SCH (08:43)
[2017-11-09] MEDS: hydroCHLOROthiazide 25 MG TABLET PO SCH (08:43)
[2017-11-09] MEDS: Cyanocobalamin (B-12) 1,000 MCG TABLET PO SCH (08:43)
[2017-11-09] MEDS: LUT PO SCH (08:43)
[2017-11-09] MEDS: C E ZINC COPPER PO SCH (08:43)
[2017-11-09] MEDS: Diltiazem CD (24hr) 120 MG CAPSULE PO SCH (08:43)
[2017-11-09] MEDS: (Omega-3s/Dha/Epa/Fish Oil [Fish Oil 1,200 Mg Softgel]) PO SCH ×2 (08:44→20:19)
[2017-11-09] MEDS: (Ubidecarenone/Vit E Acetate [Co Q-10 100 Mg Softgel]) PO SCH (08:44)
[2017-11-09] MEDS: *HR* Rivaroxaban 10 MG TABLET PO SCH (20:18)
[2017-11-10] MEDS: traMADol 50 MG TABLET PO PRN ×3 (00:22→20:52)
[2017-11-10] MEDS: valACYclovir 500 MG TABLET PO SCH ×3 (00:26→17:13)
[2017-11-10] MEDS: Ascorbic Acid 500 MG TABLET PO SCH (06:06)
[2017-11-10] MEDS: Loratadine 10 MG TABLET PO SCH (08:32)
[2017-11-10] MEDS: Cyanocobalamin (B-12) 1,000 MCG TABLET PO SCH (08:32)
[2017-11-10] MEDS: Multivit/Ca/Min/Fe/FA 1 TAB TABLET PO SCH (08:32)
[2017-11-10] MEDS: Magnesium Oxide 400 MG TABLET PO SCH ×2 (08:32→20:52)
[2017-11-10] MEDS: Diltiazem CD (24hr) 120 MG CAPSULE PO SCH (08:32)
[2017-11-10] MEDS: Cholecalciferol (D-3) 1,000 UNIT TABLET PO SCH (08:32)
[2017-11-10] MEDS: LUT PO SCH (08:33)
[2017-11-10] MEDS: C E ZINC COPPER PO SCH (08:33)
[2017-11-10] MEDS: Triamcinolone Acet 0.1% CRM 15 GM TUBE TP SCH (08:33)
[2017-11-10] MEDS: (Omega-3s/Dha/Epa/Fish Oil [Fish Oil 1,200 Mg Softgel]) PO SCH ×2 (08:33→23:38)
[2017-11-10] MEDS: [UNRECOGNIZED DRUG - OTHER] PO SCH (08:33)
[2017-11-10] MEDS: (Ubidecarenone/Vit E Acetate [Co Q-10 100 Mg Softgel]) PO SCH (08:33)
[2017-11-10] MEDS: OMEGA3S PO SCH (08:33)
--- NOTE | 2017-11-10 14:53 | Internal Med Progress Note ---
Date of Encounter: 11/10/17 Time of Encounter: 12:15 - Assessment and plan (1) Status post total hip replacement, left Current Visit: No Status: Acute Assessment and plan: October 31. Continue Xarelto and therapeutic interventions. November 02. Will add scheduled Duragesic patch for pain. Continue prn tramadol and oxycodone as presently ordered. November 03. Pain has significantly lessened with Duragesic patch. Continue present regimen. November 08. Continue present treatment. Anticipate discharge home in 2 days. November 10. Anticipate discharge home in a.m. (2) Acute blood loss anemia Current Visit: No Status: Acute Assessment and plan: October 31. Hemoglobin improved to 9.0. Anemia testing showed iron 27, transferrin saturation 13%, transferrin 154, ferritin 857, B12 244, and folate greater than 22.3. We will give B12 supplement and continue ferrous sulfate with vitamin C. November 02. Recheck labs in a.m. November 03. Hemoglobin improved to 9.5. Continue present regimen. (3) Atrial fibrillation Current Visit: No Status: Chronic Assessment and plan: October 31. Continue Xarelto Qualifiers: Atrial fibrillation type: paroxysmal Qualified Code(s): I48.0 - Paroxysmal atrial fibrillation (4) HTN (hypertension) Current Visit: No Status: Chronic Assessment and plan: October 31. Continue HCTZ, lisinopril, and diltiazem. November 05. Blood pressure borderline low. We will decrease lisinopril to 10 mg daily. November 08. Blood pressure stable on present regimen. Continue. November 10. Blood pressure has been borderline low. HCTZ and lisinopril have been discontinued. Continue diltiazem. Qualifiers: Hypertension type: essential hypertension Qualified Code(s): I10 - Essential (primary) hypertension (5) Gout Current Visit: No Status: Chronic Assessment and plan: October 31. Continue allopurinol Qualifiers: Gout site: unspecified site Gout etiology: unspecified cause Chronicity: unspecified Qualified Code(s): M10.9 - Gout, unspecified (6) Urinary frequency Current Visit: Yes Status: Acute Assessment and plan: November 02. Will order UA with C/S and check postvoid residual volume. November 03. UA was unremarkable. Continue Ditropan prn. - Subjective Interval history: October 31. She has no specific complaints. She noticed bleeding when she scratched her scalp. She has also noticed additional bruising on her legs. November 02. She complains of constant pain never less than 7/10 in her left hip. She has noted no further bleeding. She also complains of urinary frequency. November 03. She has no new complaints and feels better. Post void residual was 53 mL yesterday. She had resolution of bladder spasm with single dose of Ditropan. November 05. She has no new complaints and feels better. She has had no further bladder spasms. She states her pain has lessened. November 08. She has no new complaints and states she is nearly pain-free now. November 10. She has no new complaints except dizziness which she describes as a vertigo sensation. It is not consistent with movement of her head. She denies URI symptoms. - Constitutional Vitals: Temp Pulse Resp BP Pulse Ox 97.8 F 66 16 109/57 96 11/10/17 06:43 11/10/17 06:43 11/10/17 06:43 11/10/17 06:43 11/10/17 06:43 Exam: She is sitting in a chair at bedside resting comfortably. Her affect is bright and cheerful. I reviewed her medications. Internal Medicine: Result - Labs CBC & Chem 7: 11/03/17 05:05 11/03/17 05:05 Consult Discharge Plan - Plan Referrals: Nelson Little DO [Primary Care Provider] - 1 week
[2017-11-10] MEDS: *HR* Rivaroxaban 10 MG TABLET PO SCH (17:14)
[2017-11-11] MEDS: valACYclovir 500 MG TABLET PO SCH ×2 (00:15→08:28)
[2017-11-11] MEDS: Ascorbic Acid 500 MG TABLET PO SCH (06:26)
[2017-11-11 08:07] VITALS: BP 138/76
[2017-11-11] MEDS: Cholecalciferol (D-3) 1,000 UNIT TABLET PO SCH (08:28)
[2017-11-11] MEDS: Cyanocobalamin (B-12) 1,000 MCG TABLET PO SCH (08:28)
[2017-11-11] MEDS: Loratadine 10 MG TABLET PO SCH (08:28)
[2017-11-11] MEDS: Diltiazem CD (24hr) 120 MG CAPSULE PO SCH (08:28)
[2017-11-11] MEDS: Multivit/Ca/Min/Fe/FA 1 TAB TABLET PO SCH (08:28)
[2017-11-11] MEDS: *HR* FentaNYL PATCH 12 MCG PATCH TD SCH (08:29)
[2017-11-11] MEDS: Magnesium Oxide 400 MG TABLET PO SCH (08:34)
[2017-11-11] MEDS: Triamcinolone Acet 0.1% CRM 15 GM TUBE TP SCH (08:34)
[2017-11-11] MEDS: [UNRECOGNIZED DRUG - OTHER] PO SCH (08:35)
[2017-11-11] MEDS: OMEGA3S PO SCH (08:35)
[2017-11-11] MEDS: LUT PO SCH (08:35)
[2017-11-11] MEDS: (Ubidecarenone/Vit E Acetate [Co Q-10 100 Mg Softgel]) PO SCH (08:35)
[2017-11-11] MEDS: C E ZINC COPPER PO SCH (08:35)
[2017-11-11] MEDS: (Omega-3s/Dha/Epa/Fish Oil [Fish Oil 1,200 Mg Softgel]) PO SCH (08:35)
[2017-11-11] MEDS: traMADol 50 MG TABLET PO PRN (08:41)
--- NOTE | 2017-11-11 09:38 | Discharge Summary ---
Date of Encounter: 11/11/17 Time of Encounter: 09:20 - Discharge Diagnosis (1) Status post total hip replacement, left Priority: Primary Status: Acute (2) Acute blood loss anemia Priority: Secondary Status: Acute (3) Atrial fibrillation Priority: Secondary Status: Chronic Qualifiers: Atrial fibrillation type: paroxysmal Qualified Code(s): I48.0 - Paroxysmal atrial fibrillation (4) HTN (hypertension) Priority: Secondary Status: Chronic Qualifiers: Hypertension type: essential hypertension Qualified Code(s): I10 - Essential (primary) hypertension (5) Gout Priority: Secondary Status: Chronic Qualifiers: Gout site: unspecified site Gout etiology: unspecified cause Chronicity: unspecified Qualified Code(s): M10.9 - Gout, unspecified (6) Urinary frequency Priority: Secondary Status: Acute Hospital course: Ms. Becker is a 67 year old female who underwent elective left total hip replacement 10/26/2017 by At [facility]. Her postop course was remarkable from using 2 units packed red blood cells. She was stable otherwise was transferred to [facility] swing bed October 29 for rehabilitation therapy prior to returning to independent living at home. Initial orders were written by the discharging physicians at [facility]. I saw her on October 30 and performed the swing bed history and physical. She had physical therapy and occupational therapy evaluations with ongoing intervention. She remained on Xarelto for history of AF and DVT prophylaxis. Duragesic patch was scheduled at low dose for pain relief. Tramadol was used when necessary. She made satisfactory progress and was ready for discharge home on November 11. Anemia testing showed iron 27, transferrin saturation 13%, transferrin 154, ferritin 857, B12 244, and folate greater than 22.3. She was started on oral B12 supplement and this will be continued at discharge. She will also continue ferrous sulfate and vitamin C. Hemoglobin was improved at 9.5 on 11/03/2017. She will be discharged home and follow with her PCP Dr. Nelson Little within 1 week. She will follow with her orthopedist later today. - Time Spent with Patient Total time spent providing and/or coordinating discharge services: - Discharge Medications Prescriptions: Cyanocobalamin (B-12) [Vitamin B12] 1,000 mcg PO DAILY #30 tablet Cyclobenzaprine [Flexeril] 5 mg PO TID PRN #15 tablet PRN Reason: Muscle Spasm Oxybutynin [Ditropan] 5 mg PO BID PRN #10 tablet PRN Reason: Spasms Tramadol HCl [Tramadol HCl ER] 50 mg PO Q4H 3 Days #12 tab.er.24h Home Medications: Allopurinol [Zyloprim 100 MG] 100 mg PO DAILY 10/26/17 [History] Ascorbate Calcium [Vitamin C] 500 mg PO DAILY 10/26/17 [History] Atorvastatin [Lipitor] 40 mg PO HS 10/26/17 [History] C,E,Zinc,Copper 11/Wnbvq2e/Lut [Ocuvite Adult 50 Plus Softgel] 1 cap PO DAILY [History] Calcium Carbonate/Vitamin D3 [Calcium 600 + Vit D Tablet] 1 tab PO DAILY [History] Cetirizine HCl [Zyrtec] 10 mg PO DAILY 10/26/17 [History] Ferrous Sulfate [Iron] 325 mg PO DAILY 10/26/17 [History] Fluticasone Propionate Nasal [Flonase] 1 spr NS DAILY PRN 10/26/17 [History] Magnesium Oxide [Magnesium] 400 mg PO BID 10/26/17 [History] Meclizine HCl [Verticalm] 25 mg PO BID PRN 10/26/17 [History] Montelukast [Singulair] 10 mg PO HS 10/26/17 [History] Multivitamin [One Daily Multivitamin] 1 tab PO DAILY 10/26/17 [History] [place]-3S/Dha/Epa/Fish Oil [Fish Oil 1,200 mg Softgel] 1 cap PO BID 10/26/17 [ History] Propafenone [Rhythmol] 150 mg PO Q8H 10/26/17 [History] Rivaroxaban [Xarelto] 20 mg PO DAILY 10/26/17 [History] Sertraline [Zoloft] 100 mg PO DAILY 10/26/17 [History] Triamcinolone Acet 0.1% CRM [Kenalog] 1 appl TP DAILY 10/26/17 [History] Ubidecarenone/Vit E Acetate [Co Q-10 100 mg Softgel] 1 cap PO DAILY 10/26/17 [ History] dilTIAZem HCl [Diltiazem 24Hr ER] 120 mg PO DAILY 10/26/17 [History] Cyanocobalamin (B-12) [Vitamin B12] 1,000 mcg PO DAILY #30 tablet 11/11/17 [Rx] Cyclobenzaprine [Flexeril] 5 mg PO TID PRN #15 tablet 11/11/17 [Rx] Esomeprazole Magnesium [Nexium 24Hr] 20 mg PO DAILY PRN #0 11/11/17 [Rx] Oxybutynin [Ditropan] 5 mg PO BID PRN #10 tablet 11/11/17 [Rx] Tramadol HCl [Tramadol HCl ER] 50 mg PO Q4H 3 Days #12 tab.er.24h 11/11/17 [Rx] Allergies/Adverse Reactions: 3 Allergy/AdvReac Type Severity Reaction Status Date / Time pregabalin [From Lyrica] Allergy See Verified 10/26/17 12:05 Comments Date of admission: 10/29/17 18:37 Primary care physician: Nelson Little DO Consults: 10/29/17 18:54 Consult to Occupational Therapy [CONS] Routine Comment: weakness Reason for Consult: weakness Does patient have active BEDREST order?: No Is patient medically & hemodynamically stable?: Yes Patient assessed for mobility or mobilized this visit?: No Consult to Physical Therapy [CONS] Routine Comment: weakness Reason for Consult: weakness Does patient have active BEDREST order?: No Is patient medically & hemodynamically stable?: Yes Patient assessed for mobility or mobilized this visit?: No Consult to Coffee Taster [CONS] Routine Reason for SW Consult: swing bed - Constitutional Vitals: Temp Pulse Resp BP Pulse Ox 98.7 F 69 16 138/76 95 11/11/17 07:55 11/11/17 07:55 11/11/17 07:55 11/11/17 07:55 11/11/17 07:55 - Patient Status Disposition: Home Health Service Functional capacity at discharge: uses cane/walker Overall status at discharge: patient is progressing back to baseline - Discharge Instructions Follow Up With: Nelson Little DO [Primary Care Provider] - 1 week - Diet and Activity Activity: as per physical therapy Diet: advance to your usual diet
--- NOTE | 2017-11-11 09:43 | Physician Discharge Referral ---
Home Health/Hosp Referral Info Transfer to: Home Health Attending Provider: Yevgeniy Provider in Charge Post Discharge: PCP (Nelson Little D.O.) - Diagnosis (1) Status post total hip replacement, left Priority: Primary Status: Acute (2) Acute blood loss anemia Priority: Secondary Status: Acute (3) Atrial fibrillation Priority: Secondary Status: Chronic (4) HTN (hypertension) Priority: Secondary Status: Chronic (5) Gout Priority: Secondary Status: Chronic (6) Urinary frequency Priority: Secondary Status: Acute - Respiratory Orders Smoking Cessation: Smoking cessation has been advised. For more information, call the [place] Tobacco Quit Line at 2-210-HHMZ-NOW. - Diet/Nutrition Diet/Nutrition Orders: No Concentrated Sweets - Activity Activity Orders: Walker - Services Needed Following services are medically necessary services: Nursing, Home Health Aide, Physical Therapy, Occupational Therapy - Transfer Medications Prescriptions: Cyanocobalamin (B-12) [Vitamin B12] 1,000 mcg PO DAILY #30 tablet Cyclobenzaprine [Flexeril] 5 mg PO TID PRN #15 tablet PRN Reason: Muscle Spasm Oxybutynin [Ditropan] 5 mg PO BID PRN #10 tablet PRN Reason: Spasms Tramadol HCl [Tramadol HCl ER] 50 mg PO Q4H 3 Days #12 tab.er.24h Home Medications: Allopurinol [Zyloprim 100 MG] 100 mg PO DAILY 10/26/17 [History] Ascorbate Calcium [Vitamin C] 500 mg PO DAILY 10/26/17 [History] Atorvastatin [Lipitor] 40 mg PO HS 10/26/17 [History] C,E,Zinc,Copper 11/Aosua8j/Lut [Ocuvite Adult 50 Plus Softgel] 1 cap PO DAILY [History] Calcium Carbonate/Vitamin D3 [Calcium 600 + Vit D Tablet] 1 tab PO DAILY [History] Cetirizine HCl [Zyrtec] 10 mg PO DAILY 10/26/17 [History] Ferrous Sulfate [Iron] 325 mg PO DAILY 10/26/17 [History] Fluticasone Propionate Nasal [Flonase] 1 spr NS DAILY PRN 10/26/17 [History] Magnesium Oxide [Magnesium] 400 mg PO BID 10/26/17 [History] Meclizine HCl [Verticalm] 25 mg PO BID PRN 10/26/17 [History] Montelukast [Singulair] 10 mg PO HS 10/26/17 [History] Multivitamin [One Daily Multivitamin] 1 tab PO DAILY 10/26/17 [History] [place]-3S/Dha/Epa/Fish Oil [Fish Oil 1,200 mg Softgel] 1 cap PO BID 10/26/17 [ History] Propafenone [Rhythmol] 150 mg PO Q8H 10/26/17 [History] Rivaroxaban [Xarelto] 20 mg PO DAILY 10/26/17 [History] Sertraline [Zoloft] 100 mg PO DAILY 10/26/17 [History] Triamcinolone Acet 0.1% CRM [Kenalog] 1 appl TP DAILY 10/26/17 [History] Ubidecarenone/Vit E Acetate [Co Q-10 100 mg Softgel] 1 cap PO DAILY 10/26/17 [ History] dilTIAZem HCl [Diltiazem 24Hr ER] 120 mg PO DAILY 10/26/17 [History] Cyanocobalamin (B-12) [Vitamin B12] 1,000 mcg PO DAILY #30 tablet 11/11/17 [Rx] Cyclobenzaprine [Flexeril] 5 mg PO TID PRN #15 tablet 11/11/17 [Rx] Esomeprazole Magnesium [Nexium 24Hr] 20 mg PO DAILY PRN #0 11/11/17 [Rx] Oxybutynin [Ditropan] 5 mg PO BID PRN #10 tablet 11/11/17 [Rx] Tramadol HCl [Tramadol HCl ER] 50 mg PO Q4H 3 Days #12 tab.er.24h 11/11/17 [Rx] Allergies/Adverse Reactions: 3 Allergy/AdvReac Type Severity Reaction Status Date / Time pregabalin [From Lyrica] Allergy See Verified 10/26/17 12:05 Comments Certification: Further, I certify that my clinical findings support that this patient is homebound (i.e. absences from home require considerable and taxing effort and are for medical reasons or [employer] services or infrequently or short duration when for other reasons) because: Homebound Reason: Leaving home requires considerable and taxing effort due to condition (DJD status post left total hip replacement) Attestation: My signature below is to certify that this patient is under my care and that I, or nurse practitioner, or a physician's kindergarten instructional assistant working with me, has a face-to -face encounter with this patient.
== END 2017-11-11 10:22 | disposition home health service (06) | DRG 560 ==
LOC: INPPIK 18:37 → PREOBSVTOIN 10-30 18:16 → INPPIK 10-31 11:00
PROVIDERS: ADMIT Internal Medicine; ATTEND Internal Medicine

== ENCOUNTER 2018-07-02 12:21 | Inpatient (IN) ==
[2018-07-03] MEDS ORDERED: Fluticasone Propionate Nasal 50 MCG/SPRAY BOTTLE NS PRN (17:52)
[2018-07-03] MEDS: Magnesium Oxide 400 MG TABLET PO SCH (20:27)
[2018-07-03] MEDS: *HR* OxyCODONE/APAP 5/325 TABLET PO PRN (20:27)
[2018-07-04] MEDS: *HR* OxyCODONE/APAP 5/325 TABLET PO PRN ×4 (02:43→21:31)
[2018-07-04 06:47] LABS: Basophils % 0.3 %; Eosinophils # 0.2 K/mcL (0.0-0.6); Eosinophils % 3.2 %; Hematocrit 27.9 % (35.3-44.9); Hemoglobin 8.9 g/dL (11.5-15.4); Lymphocytes # 0.7 K/mcL (0.6-4.6); Lymphocytes % 11.7 %; Mean Corpuscular HGB Conc 31.9 g/dL (31.6-35.5); Mean Corpuscular Volume 90.9 fL (83.0-100.0); Mean Platelet Volume 12.1 fL (9.4-12.4); Monocytes # 0.6 K/mcL (0.0-1.3); Monocytes % 10.1 %; Neutrophils # 4.6 K/mcL (1.6-8.9); Platelet Count 163 K/mcL (140-400); Red Blood Count 3.07 M/mcL (3.82-4.97); Segmented Neutrophils % 73.7 %
[2018-07-04 06:50] LABS: INR 1.5; Prothrombin Time 16.8 Seconds (9.4-12.1)
[2018-07-04 06:52] LABS: Activated Partial Thrombo Time 39.3 Seconds (26.0-36.0)
[2018-07-04 07:09] LABS: BUN/Creatinine Ratio 21 (6-26); Blood Urea Nitrogen 14 mg/dL (8-23); Calcium 8.9 mg/dL (8.6-10.3); Carbon Dioxide 31 mEq/L (23-29); Chloride 101 mEq/L (98-107); Glucose 110 mg/dL (70-105); Osmolality,Calculated 289 (280-300); Potassium 3.9 mEq/L (3.5-5.1); Sodium 139 mEq/L (136-145); eGFR For Non-African Americans > 60 (> 60)
[2018-07-04] MEDS: Magnesium Oxide 400 MG TABLET PO SCH ×2 (08:17→21:31)
[2018-07-04] MEDS: Diltiazem CD (24hr) 120 MG CAPSULE PO SCH (08:17)
[2018-07-04] MEDS: Multivit/Ca/Min/Fe/FA 1 TAB TABLET PO SCH (08:18)
[2018-07-04] MEDS: Ascorbic Acid 500 MG TABLET PO SCH (08:19)
[2018-07-04] MEDS: Cyanocobalamin (B-12) 1,000 MCG TABLET PO SCH (08:19)
[2018-07-04] MEDS: Cholecalciferol (D-3) 1,000 UNIT TABLET PO SCH (08:19)
[2018-07-04] MEDS: (Ubidecarenone/Vit E Acetate [Co Q-10 100 Mg Softgel]) PO SCH (08:26)
[2018-07-04] MEDS ORDERED: hydroCHLOROthiazide 25 MG TABLET PO SCH (09:00)
[2018-07-04] MEDS ORDERED: LUT PO SCH (09:00)
[2018-07-04] MEDS ORDERED: OMEGA3S PO SCH (09:00)
[2018-07-04] MEDS ORDERED: C E ZINC COPPER PO SCH (09:00)
[2018-07-04] MEDS ORDERED: [UNRECOGNIZED DRUG - OTHER] PO SCH (09:00)
[2018-07-04] MEDS ORDERED: Loratadine 10 MG TABLET PO SCH (09:00)
[2018-07-04] MEDS: *HR* Rivaroxaban 10 MG TABLET PO SCH (16:06)
--- NOTE | 2018-07-04 16:16 | Internal Med History&Physical ---
Date of Encounter: 07/04/18 Time of Encounter: 16:09 Internal Medicine - H&P: HPI History of present illness: Ms. Becker is a 68 year old female Past Med Surg Social Fam HX - Past Medical History Medical history: arthritis, asthma, atrial fibrillation, coronary artery disease, fibromyalgia, GERD, hyperlipidemia, hypertension Additional medical history: diverticulitis. impaired fasting glucose. non th rombosed external hemorrhoids. obesity. allergy injection. osteoarthritis. back pain. anemia. anxiety. depression. lupus. degerneative joint disease. irregular heartbeat. high potassium. uterine polyps, extra thick lining. vertigo. lumbar stenosis & radiculopathy Psychiatric history: anxiety, depression - Past Surgical History Surgical History: cholecystectomy, hip replacement, knee replacement, orthopedic, other, other Additional surgical history: tonsillectomy and adenoidectomy. sinus surgery, unsp. dilation and curettage. carpal tunnel release- bilateral. colonoscopy. PLIF L4-S1, LAMINECTOMY L2-3 06/29/18. cardiac cath. right total shoulder replacement reverse ball socket. right shoulder replacement. left shoulder replacement. operative hysteroscopy, D&C and polupectomy with myosure. cardioversion - Social History Smoking Status: Never smoker Smokeless Tobacco Status: No Alcohol use: none Drug use: none - Family History Father Hx Family Cancer: Yes (Leukemia) Mother Hx Family Cardiac Disorders: Yes (CHF) Internal Medicine - H&P: Meds Allopurinol [Zyloprim 100 MG] 100 mg PO DAILY 10/26/17 [History] Ascorbate Calcium [Vitamin C] 500 mg PO DAILY 10/26/17 [History] C,E,Zinc,Copper 11/Hjiau1s/Lut [Ocuvite Adult 50 Plus Softgel] 1 cap PO DAILY 10/26/17 [History] Calcium Carbonate/Vitamin D3 [Calcium 600 + Vit D Tablet] 1 tab PO DAILY 10/26/17 [History] Cetirizine HCl [Zyrtec] 10 mg PO DAILY 10/26/17 [History] Ferrous Sulfate [Iron] 325 mg PO DAILY 10/26/17 [History] Fluticasone Propionate Nasal [Flonase] 1 spr NS DAILY PRN 10/26/17 [History] Magnesium Oxide [Magnesium] 400 mg PO BID 10/26/17 [History] Multivitamin [One Daily Multivitamin] 1 tab PO DAILY 10/26/17 [History] [place]-3S/Dha/Epa/Fish Oil [Fish Oil 1,200 mg Softgel] 1 cap PO BID 10/26/17 [History] Sertraline [Zoloft] 100 mg PO DAILY 10/26/17 [History] Ubidecarenone/Vit E Acetate [Co Q-10 100 mg Softgel] 1 cap PO DAILY 10/26/17 [History] dilTIAZem HCl [Diltiazem 24Hr ER] 120 mg PO DAILY 10/26/17 [History] Cyanocobalamin (B-12) [Vitamin B12] 1,000 mcg PO DAILY #30 tablet 11/11/17 [Rx] Albuterol Sulfate [Ventolin Hfa] 2 puff IH Q4H PRN 06/29/18 [History] Esomeprazole Magnesium [Nexium 24Hr] 20 mg PO DAILY 06/29/18 [History] Meclizine HCl [Verticalm] 25 mg PO BID PRN 06/29/18 [History] Montelukast [Singulair] 10 mg PO DAILY 06/29/18 [History] Propafenone [Rhythmol] 150 mg PO TID 06/29/18 [History] Quinapril HCl [Accupril] 5 - 10 mg PO DAILY 06/29/18 [History] Rivaroxaban [Xarelto] 20 mg PO DAILY 06/29/18 [History] hydroCHLOROthiazide [Hydrochlorothiazide] 12.5 mg PO DAILY 06/29/18 [History] Atorvastatin [Lipitor] 40 mg PO HS 06/30/18 [History] OxyCODONE/APAP 5/325 [Percocet 5/325 MG] 1 each PO Q6HR PRN 7 Days #28 tablet 07/03/18 [Rx] Allergy/AdvReac Type Severity Reaction Status Date / Time pregabalin [From Lyrica] Allergy SWELLING Verified 06/23/18 10:43 amitriptyline AdvReac UNSURE Verified 06/23/18 10:43 All Systems PM: A 10-system review of systems was performed and is negative for pertinent findings except as documented above in the HPI. Review of systems: Review of systems from her October 2017 [facility] hospitalization were reviewed and revised as below. Gen.: Her weight has increased from 122.152 kg on 11/04/2017 to 129.812 kg today. Cardiovascular: She has history of hypertension. She has had atrial fibrillation with cardioversion 2 in 2017. She is now on Rythmol and has maintained NSR. Echocardiogram 07/01/2018 showed LVEF of 65-70 %. The interventricular septum and posterior wall thickness measurements were elevated 1.10 and 1.30 cm respectively. There was LAE at 4.20 cm. The E/A ratio was 1.2. Estimated RVSP was normal at 30 mmHg. There was mild aortic stenosis. There is no history of DVT or pulmonary embolus. Regadenoson EST 01/25/2017 showed no perfusion or EKG changes indicating ischemia. The LVEF was > 70%. Respiratory: She smoked from age [age]. She has no documented chronic lung disease. She has been diagnosed with JABIER but states she cannot tolerate CPAP/BiPAP. GI: She has had cholecystectomy. She denies disorders of her liver or exocrine pancreas : She denies hematuria dysuria or kidney stones Neurologic: She has had vertigo intermittently for several years. She takes meclizine regularly. She denies large distribution strokes or seizures. Endocrine: She states she is prediabetic but hemoglobin A1c was 5.7% on 07/01/2018. She has hyperlipidemia but denies thyroid disease Hematology/oncology: She has anemia. Anemia workup october 2017 showed iron 27, transferrin saturation 13%, transferrin 154, ferritin 857, B12 244, and folate> 22.3. She denies internal malignancies or blood disorders Psychiatric: She has anxiety depression. She denies other mental health issues. [place] skeletal: As per history of present illness - Constitutional Vitals: Temp Pulse Resp BP Pulse Ox 97.8 F 64 16 112/71 93 07/04/18 08:07 07/04/18 08:07 07/04/18 08:07 07/04/18 08:07 07/04/18 08:07 Internal Med - H&P Results - Labs CBC & Chem 7: 07/04/18 05:40 07/04/18 05:40 Labs: Short CBC 07/04/18 Range/Units 05:40 WBC 6.2 (4.3-11.1) K/mcL Hgb 8.9 L (11.5-15.4) g/dL Hct 27.9 L (35.3-44.9) % Plt Count 163 (140-400) K/mcL Neutrophils # 4.6 (1.6-8.9) K/mcL BMP 07/04/18 05:40 Sodium 139 Potassium 3.9 Chloride 101 Carbon Dioxide 31 H BUN 14 Creatinine 0.66 Glucose 110 H Calcium 8.9
--- NOTE | 2018-07-04 16:49 | Internal Med History&Physical ---
Date of Encounter: 07/04/18 Time of Encounter: 14:10 Assessment and Plan (1) Status post lumbar spinal fusion Current visit: No Status: Acute PT and OT evaluations have been ordered. Analgesics will be given on a scheduled and prn basis. (2) Anemia Current visit: Yes Status: Acute Check anemia testing in a.m. Qualifiers: Anemia type: unspecified type Qualified Code(s): D64.9 - Anemia, unspecified (3) HTN (hypertension) Current visit: No Status: Chronic Continue lisinopril. She has declined HCTZ. Qualifiers: Hypertension type: essential hypertension Qualified Code(s): I10 - Essential (primary) hypertension (4) Gout Current visit: No Status: Chronic Check uric acid level in a.m. Qualifiers: Gout site: unspecified site Gout etiology: unspecified cause Chronicity: unspecified Qualified Code(s): M10.9 - Gout, unspecified (5) Atrial fibrillation Current visit: No Status: Chronic Remains in normal sinus rhythm. Continue Rythmol and Xarelto. Qualifiers: Atrial fibrillation type: paroxysmal Qualified Code(s): I48.0 - Paroxysmal atrial fibrillation Internal Medicine - H&P: HPI Chief complaint: Back surgery Admitted From: Hospital to Hospital Transfer Plans for Post Hospital Care: Home History of present illness: Ms. Becker is a 68 year old female who underwent elective L2/L3 laminectomy and L4-S1 interbody fusion by Dr. Eugene at [facility] for chronic back pain. Her postop course was unremarkable and she was discharged [facility] swing bed for rehabilitation therapy prior to returning to independent living. [facility] for previous bilateral carpal tunnel surgeries, bilateral hip surgery, bilateral total knee replacement, bilateral shoulder surgeries and history of gout. Past Med Surg Social Fam HX - Past Medical History Medical history: arthritis, asthma, atrial fibrillation, coronary artery disease, fibromyalgia, GERD, hyperlipidemia, hypertension Additional medical history: diverticulitis. impaired fasting glucose. non thrombosed external hemorrhoids. obesity. allergy injection. osteoarthritis. back pain. anemia. anxiety. depression. lupus. degerneative joint disease. irregular heartbeat. high potassium. uterine polyps, extra thick lining. vertigo. lumbar stenosis & radiculopathy Psychiatric history: anxiety, depression - Past Surgical History Surgical History: cholecystectomy, hip replacement, knee replacement, orthopedic, other, other Additional surgical history: tonsillectomy and adenoidectomy. sinus surgery, un sp. dilation and curettage. carpal tunnel release- bilateral. colonoscopy. PLIF L4-S1, LAMINECTOMY L2-3 06/29/18. cardiac cath. right total shoulder replacement reverse ball socket. right shoulder replacement. left shoulder replacement. operative hysteroscopy, D&C and polupectomy with myosure. cardioversion - Social History Smoking Status: Never smoker Smokeless Tobacco Status: No Alcohol use: none Drug use: none - Family History Father Hx Family Cancer: Yes (Leukemia) Mother Hx Family Cardiac Disorders: Yes (CHF) Internal Medicine - H&P: Meds Allopurinol [Zyloprim 100 MG] 100 mg PO DAILY 10/26/17 [History] Ascorbate Calcium [Vitamin C] 500 mg PO DAILY 10/26/17 [History] C,E,Zinc,Copper 11/Xdngk1r/Lut [Ocuvite Adult 50 Plus Softgel] 1 cap PO DAILY 10/26/17 [History] Calcium Carbonate/Vitamin D3 [Calcium 600 + Vit D Tablet] 1 tab PO DAILY 10/26/17 [History] Cetirizine HCl [Zyrtec] 10 mg PO DAILY 10/26/17 [History] Ferrous Sulfate [Iron] 325 mg PO DAILY 10/26/17 [History] Fluticasone Propionate Nasal [Flonase] 1 spr NS DAILY PRN 10/26/17 [History] Magnesium Oxide [Magnesium] 400 mg PO BID 10/26/17 [History] Multivitamin [One Daily Multivitamin] 1 tab PO DAILY 10/26/17 [History] [place]-3S/Dha/Epa/Fish Oil [Fish Oil 1,200 mg Softgel] 1 cap PO BID 10/26/17 [History] Sertraline [Zoloft] 100 mg PO DAILY 10/26/17 [History] Ubidecarenone/Vit E Acetate [Co Q-10 100 mg Softgel] 1 cap PO DAILY 10/26/17 [History] dilTIAZem HCl [Diltiazem 24Hr ER] 120 mg PO DAILY 10/26/17 [History] Cyanocobalamin (B-12) [Vitamin B12] 1,000 mcg PO DAILY #30 tablet 11/11/17 [Rx] Albuterol Sulfate [Ventolin Hfa] 2 puff IH Q4H PRN 06/29/18 [History] Esomeprazole Magnesium [Nexium 24Hr] 20 mg PO DAILY 06/29/18 [History] Meclizine HCl [Verticalm] 25 mg PO BID PRN 06/29/18 [History] Montelukast [Singulair] 10 mg PO DAILY 06/29/18 [History] Propafenone [Rhythmol] 150 mg PO TID 06/29/18 [History] Quinapril HCl [Accupril] 5 - 10 mg PO DAILY 06/29/18 [History] Rivaroxaban [Xarelto] 20 mg PO DAILY 06/29/18 [History] hydroCHLOROthiazide [Hydrochlorothiazide] 12.5 mg PO DAILY 06/29/18 [History] Atorvastatin [Lipitor] 40 mg PO HS 06/30/18 [History] OxyCODONE/APAP 5/325 [Percocet 5/325 MG] 1 each PO Q6HR PRN 7 Days #28 tablet 07/03/18 [Rx] Allergy/AdvReac Type Severity Reaction Status Date / Time pregabalin [From Lyrica] Allergy SWELLING Verified 06/23/18 10:43 amitriptyline AdvReac UNSURE Verified 06/23/18 10:43 All Systems PM: A 10-system review of systems was performed and is negative for pertinent findings except as documented above in the HPI. Review of systems: Review of systems from her October 2017 [facility] hospitalization were reviewed and revised as below. Gen.: Her weight is increased from 120.287 kg on 07/03/2018 to present weight of 129.812 kg. Cardiovascular: She has history of hypertension. She has had atrial fibrillation with cardioversion 2 in 2017. She is now on Rythmol and has maintained NSR. Echocardiogram 07/01/2018 showed LVEF of 65-70%. The interventricular septum and posterior wall thickness measurements were 1.10 and 1.30 cm respectively. There was LAE at 4.20 cm. E/A ratio was 1.2. Estimated RVSP was 30 mmHg. There was mild aortic stenosis present. Regadenoson EST 01/06/2017 showed no EKG or perfusion evidence for ischemia or infarct. There is no history of DVT or pulmonary embolus. Respiratory: She smoked from age [age]. She has no documented chronic lung disease. She has been diagnosed with JABIER but states she cannot tolerate CPAP/BiPAP. GI: She has had cholecystectomy. She denies disorders of her liver or exocrine pancreas. She has occasional GERD symptoms. : She denies hematuria dysuria or kidney stones Neurologic: She has had vertigo intermittently for several years. She denies large distribution strokes or seizures. Endocrine: She states she is prediabetic. Hemoglobin A1c was 5.7% on 2018. She has hyperlipidemia but denies thyroid disease Hematology/oncology: She has anemia and is on ferrous sulfate with ascorbic acid and B12 supplement. She denies internal malignancies or other blood disorders Psychiatric: She has anxiety and depression. She denies other mental health issues. [place] skeletal: As per history of present illness - Constitutional Vitals: Temp Pulse Resp BP Pulse Ox 97.8 F 64 16 112/71 93 07/04/18 08:07 07/04/18 08:07 07/04/18 08:07 07/04/18 08:07 07/04/18 08:07 Exam: Gen.: She is a well-developed obese female sitting on the side of bed who appears in no severe distress HEENT: Head is atraumatic and normocephalic. Eyes: EOMI. There is no scleral icterus. Mouth: Mucosa is moist. Neck: Supple and nontender. There is no thyromegaly or adenopathy noted. Heart: Regular without murmurs gallops or ectopics Lungs: No wheezes or crackles are heard. Abdomen: Exam is limited because she is in the seated position. Abdomen is nontender to palpation. Extremities: There is no cyanosis edema or clubbing noted. Dorsalis pedis and posterior tibial pulses are trace palpable bilaterally. Neurologic: Mental status: She is talkative and a good historian. Cranial ner ves: Smile is symmetric. Forehead wrinkles bilaterally. Tongue protrudes midline. EOMI. Motor: There is no pronator drift. Cerebellar: Finger to nose is intact bilaterally. Skin: Warm and dry. Lumbar incision shows no erythema or drainage. Internal Med - H&P Results - Labs CBC & Chem 7: 07/04/18 05:40 07/04/18 05:40 Labs: Short CBC 07/04/18 Range/Units 05:40 WBC 6.2 (4.3-11.1) K/mcL Hgb 8.9 L (11.5-15.4) g/dL Hct 27.9 L (35.3-44.9) % Plt Count 163 (140-400) K/mcL Neutrophils # 4.6 (1.6-8.9) K/mcL [facility] 07/04/18 05:40 Sodium 139 Potassium 3.9 Chloride 101 Carbon Dioxide 31 H BUN 14 Creatinine 0.66 Glucose 110 H Calcium 8.9
[2018-07-04] MEDS: MOM Conc 10 ML UD.LIQ PO SCH (17:12)
[2018-07-04] MEDS: Gabapentin 100 MG CAPSULE PO SCH ×2 (17:12→21:34)
[2018-07-04] MEDS: Methyl Salicylate/Menthol 28 GM TUBE TP SCH (17:13)
[2018-07-04] MEDS: *HR* FentaNYL PATCH 12 MCG PATCH TD SCH (17:13)
[2018-07-04] MEDS: Loratadine 10 MG TABLET PO SCH (21:30)
[2018-07-05] MEDS: *HR* OxyCODONE/APAP 5/325 TABLET PO PRN ×6 (01:29→22:38)
[2018-07-05 06:55] LABS: Basophils % 0.7 %; Eosinophils # 0.1 K/mcL (0.0-0.6); Eosinophils % 2.1 %; Hematocrit 27.1 % (35.3-44.9); Hemoglobin 8.6 g/dL (11.5-15.4); Immature Granulocytes % 0.9 % (0-4); Lymphocytes # 0.9 K/mcL (0.6-4.6); Lymphocytes % 15.1 %; Mean Corpuscular HGB Conc 31.7 g/dL (31.6-35.5); Mean Corpuscular Volume 91.2 fL (83.0-100.0); Mean Platelet Volume 12.1 fL (9.4-12.4); Monocytes # 0.7 K/mcL (0.0-1.3); Monocytes % 11.9 %; Neutrophils # 3.9 K/mcL (1.6-8.9); Platelet Count 189 K/mcL (140-400); Red Blood Count 2.97 M/mcL (3.82-4.97); Segmented Neutrophils % 69.3 %
[2018-07-05 07:17] LABS: Uric Acid 3.8 mg/dL (2.3-7.6)
[2018-07-05 09:10] LABS: Folate 21.4 ng/mL (3.0-16.0)
[2018-07-05] MEDS: MOM Conc 10 ML UD.LIQ PO SCH (09:22)
[2018-07-05] MEDS: Ascorbic Acid 500 MG TABLET PO SCH (09:25)
[2018-07-05] MEDS: Multivit/Ca/Min/Fe/FA 1 TAB TABLET PO SCH (09:25)
[2018-07-05] MEDS: Cyanocobalamin (B-12) 1,000 MCG TABLET PO SCH (09:26)
[2018-07-05] MEDS: Magnesium Oxide 400 MG TABLET PO SCH ×2 (09:26→21:55)
[2018-07-05] MEDS: Diltiazem CD (24hr) 120 MG CAPSULE PO SCH (09:26)
[2018-07-05] MEDS: Cholecalciferol (D-3) 1,000 UNIT TABLET PO SCH (09:26)
[2018-07-05] MEDS: Methyl Salicylate/Menthol 28 GM TUBE TP SCH (09:33)
[2018-07-05] MEDS: (Ubidecarenone/Vit E Acetate [Co Q-10 100 Mg Softgel]) PO SCH (09:33)
[2018-07-05] MEDS: Gabapentin 100 MG CAPSULE PO SCH ×2 (09:33→17:04)
[2018-07-05] MEDS: *HR* Rivaroxaban 10 MG TABLET PO SCH (17:02)
--- NOTE | 2018-07-05 17:56 | Internal Med Progress Note ---
Date of Encounter: 07/05/18 Time of Encounter: 15:49 - Assessment and plan (1) Status post lumbar spinal fusion Current Visit: No Status: Acute Assessment and plan: July 05. Continue therapy intervention and analgesics. Discontinue Neurontin and start Cymbalta. (2) Anemia Current Visit: Yes Status: Acute Assessment and plan: July 05. Anemia testing showed iron 11, transferrin saturation 5%, transferrin 162, ferritin 572, B12 669, and folate 21.4. Continue ferrous sulfate and ascorbic acid. Qualifiers: Anemia type: unspecified type Qualified Code(s): D64.9 - Anemia, unspecified (3) HTN (hypertension) Current Visit: No Status: Chronic Assessment and plan: July 05. Continue lisinopril. Qualifiers: Hypertension type: essential hypertension Qualified Code(s): I10 - Essential (primary) hypertension (4) Gout Current Visit: No Status: Chronic Assessment and plan: July 05. Uric acid level normal at 3.8. Qualifiers: Gout site: unspecified site Gout etiology: unspecified cause Chronicity: unspecified Qualified Code(s): M10.9 - Gout, unspecified (5) Atrial fibrillation Current Visit: No Status: Chronic Assessment and plan: July 05. Continue Rythmol and Xarelto. Qualifiers: Atrial fibrillation type: paroxysmal Qualified Code(s): I48.0 - Paroxysmal atrial fibrillation - Subjective Interval history: July 05. She has no new complaints. She feels the Neurontin is making her feel abnormal and does not wish to take it. - Constitutional Vitals: Temp Pulse Resp BP Pulse Ox 97.5 F L 66 16 131/76 96 07/05/18 06:56 07/05/18 06:56 07/05/18 06:56 07/05/18 06:56 07/05/18 06:56 Exam: She is sitting in a chair at bedside resting comfortably. Her affect is overall cheerful. I reviewed her medications and lab results. Internal Medicine: Result - Labs CBC & Chem 7: 07/05/18 05:15 07/04/18 05:40 Labs: Short CBC 07/05/18 Range/Units 05:15 WBC 5.6 (4.3-11.1) K/mcL Hgb 8.6 L (11.5-15.4) g/dL Hct 27.1 L (35.3-44.9) % Plt Count 189 (140-400) K/mcL Neutrophils # 3.9 (1.6-8.9) K/mcL - ABG Interpretation ABG results: PT/INR, D-dimer PT 16.8 Seconds (9.4-12.1) H 07/04/18 05:40 Consult Discharge Plan - Plan Referrals: Nelson Little DO [Primary Care Provider] - 1 week
[2018-07-05] MEDS: Loratadine 10 MG TABLET PO SCH (21:55)
[2018-07-06] MEDS: Ascorbic Acid 500 MG TABLET PO SCH (06:33)
[2018-07-06] MEDS: MOM Conc 10 ML UD.LIQ PO SCH (08:34)
[2018-07-06] MEDS: Multivit/Ca/Min/Fe/FA 1 TAB TABLET PO SCH (08:34)
[2018-07-06] MEDS: Magnesium Oxide 400 MG TABLET PO SCH ×2 (08:34→21:31)
[2018-07-06] MEDS: Cyanocobalamin (B-12) 1,000 MCG TABLET PO SCH (08:35)
[2018-07-06] MEDS: Cholecalciferol (D-3) 1,000 UNIT TABLET PO SCH (08:35)
[2018-07-06] MEDS: Diltiazem CD (24hr) 120 MG CAPSULE PO SCH (08:35)
[2018-07-06] MEDS: Methyl Salicylate/Menthol 28 GM TUBE TP SCH (08:35)
[2018-07-06] MEDS: (Ubidecarenone/Vit E Acetate [Co Q-10 100 Mg Softgel]) PO SCH (08:36)
[2018-07-06] MEDS: *HR* OxyCODONE/APAP 5/325 TABLET PO PRN ×4 (08:41→22:40)
[2018-07-06] MEDS: *HR* Rivaroxaban 10 MG TABLET PO SCH (16:25)
[2018-07-06] MEDS: Loratadine 10 MG TABLET PO SCH (21:31)
[2018-07-07] MEDS: *HR* OxyCODONE/APAP 5/325 TABLET PO PRN ×4 (05:43→22:19)
[2018-07-07] MEDS: Ascorbic Acid 500 MG TABLET PO SCH (05:43)
[2018-07-07] MEDS: Diltiazem CD (24hr) 120 MG CAPSULE PO SCH (08:32)
[2018-07-07] MEDS: Cyanocobalamin (B-12) 1,000 MCG TABLET PO SCH (08:34)
[2018-07-07] MEDS: Cholecalciferol (D-3) 1,000 UNIT TABLET PO SCH (08:34)
[2018-07-07] MEDS: Multivit/Ca/Min/Fe/FA 1 TAB TABLET PO SCH (08:34)
[2018-07-07] MEDS: (Ubidecarenone/Vit E Acetate [Co Q-10 100 Mg Softgel]) PO SCH (08:35)
[2018-07-07] MEDS: Magnesium Oxide 400 MG TABLET PO SCH ×2 (08:35→22:19)
[2018-07-07] MEDS: Methyl Salicylate/Menthol 28 GM TUBE TP SCH (08:35)
[2018-07-07] MEDS: MOM Conc 10 ML UD.LIQ PO SCH (08:35)
[2018-07-07] MEDS ORDERED: MOM Conc 10 ML UD.LIQ PO PRN (15:17)
--- NOTE | 2018-07-07 15:34 | Internal Med Progress Note ---
Date of Encounter: 07/07/18 Time of Encounter: 15:25 - Assessment and plan (1) Status post lumbar spinal fusion Current Visit: No Status: Acute Assessment and plan: July 05. Continue therapy intervention and analgesics. Discontinue Neurontin and start Cymbalta. July 07. Continue therapy and analgesics with Cymbalta. (2) Anemia Current Visit: Yes Status: Acute Assessment and plan: July 05. Anemia testing showed iron 11, transferrin saturation 5%, transferrin 162, ferritin 572, B12 669, and folate 21.4. Continue ferrous sulfate and ascorbic acid. July 07. Continue ferrous sulfate and ascorbic acid. Omeprazole was discontinued to facilitate absorption. Maalox will be available on a prn basis. Qualifiers: Anemia type: unspecified type Qualified Code(s): D64.9 - Anemia, unspecified (3) HTN (hypertension) Current Visit: No Status: Chronic Assessment and plan: July 05. Continue lisinopril. Qualifiers: Hypertension type: essential hypertension Qualified Code(s): I10 - Essential (primary) hypertension (4) Gout Current Visit: No Status: Chronic Assessment and plan: July 05. Uric acid level normal at 3.8. Qualifiers: Gout site: unspecified site Gout etiology: unspecified cause Chronicity: unspecified Qualified Code(s): M10.9 - Gout, unspecified (5) Atrial fibrillation Current Visit: No Status: Chronic Assessment and plan: July 05. Continue Rythmol and Xarelto. Qualifiers: Atrial fibrillation type: paroxysmal Qualified Code(s): I48.0 - Paroxysmal atrial fibrillation - Subjective Interval history: July 05. She has no new complaints. She feels the Neurontin is making her feel abnormal and does not wish to take it. July 07. She has no new complaints. She states she is tolerating the Cymbalta well and feels overall in less pain. - Constitutional Vitals: Temp Pulse Resp BP Pulse Ox 97.5 F L 63 16 118/51 96 07/07/18 11:18 07/07/18 14:49 07/07/18 11:18 07/07/18 14:49 07/07/18 14:49 Exam: She is resting comfortably in bed and appears in no acute distress. Her affect is bright and cheerful. I reviewed her medications and lab results. Internal Medicine: Result - Labs CBC & Chem 7: 07/05/18 05:15 07/04/18 05:40 - ABG Interpretation ABG results: PT/INR, D-dimer PT 16.8 Seconds (9.4-12.1) H 07/04/18 05:40 Consult Discharge Plan - Plan Referrals: Nelson Little DO [Primary Care Provider] - 1 week
[2018-07-07] MEDS: *HR* Rivaroxaban 10 MG TABLET PO SCH (17:03)
[2018-07-07] MEDS: *HR* FentaNYL PATCH 12 MCG PATCH TD SCH (18:14)
[2018-07-07] MEDS: Loratadine 10 MG TABLET PO SCH (22:19)
[2018-07-08] MEDS: *HR* OxyCODONE/APAP 5/325 TABLET PO PRN ×3 (04:43→20:57)
[2018-07-08] MEDS: Ascorbic Acid 500 MG TABLET PO SCH (05:38)
[2018-07-08 06:44] LABS: Basophils % 0.4 %; Eosinophils # 0.2 K/mcL (0.0-0.6); Eosinophils % 3.2 %; Hematocrit 28.6 % (35.3-44.9); Hemoglobin 8.9 g/dL (11.5-15.4); Immature Granulocytes % 1.5 % (0-4); Lymphocytes # 0.9 K/mcL (0.6-4.6); Mean Corpuscular HGB Conc 31.1 g/dL (31.6-35.5); Mean Corpuscular Hemoglobin 28.5 pg (28.0-33.3); Mean Corpuscular Volume 91.7 fL (83.0-100.0); Mean Platelet Volume 11.4 fL (9.4-12.4); Monocytes # 0.7 K/mcL (0.0-1.3); Monocytes % 9.5 %; Neutrophils # 5.3 K/mcL (1.6-8.9); Platelet Count 255 K/mcL (140-400); Red Blood Count 3.12 M/mcL (3.82-4.97); Segmented Neutrophils % 73.4 %
[2018-07-08] MEDS: Cholecalciferol (D-3) 1,000 UNIT TABLET PO SCH (08:34)
[2018-07-08] MEDS: Diltiazem CD (24hr) 120 MG CAPSULE PO SCH (08:35)
[2018-07-08] MEDS: Multivit/Ca/Min/Fe/FA 1 TAB TABLET PO SCH (08:35)
[2018-07-08] MEDS: Cyanocobalamin (B-12) 1,000 MCG TABLET PO SCH (08:35)
[2018-07-08] MEDS: Magnesium Oxide 400 MG TABLET PO SCH ×2 (08:35→20:56)
[2018-07-08] MEDS: (Ubidecarenone/Vit E Acetate [Co Q-10 100 Mg Softgel]) PO SCH (08:37)
[2018-07-08] MEDS: Methyl Salicylate/Menthol 28 GM TUBE TP SCH (08:37)
[2018-07-08] MEDS: *HR* Rivaroxaban 10 MG TABLET PO SCH (16:58)
[2018-07-08] MEDS: Loratadine 10 MG TABLET PO SCH (20:57)
[2018-07-09] MEDS: *HR* OxyCODONE/APAP 5/325 TABLET PO PRN ×5 (01:37→21:39)
[2018-07-09] MEDS: Ascorbic Acid 500 MG TABLET PO SCH (06:00)
[2018-07-09] MEDS: (Ubidecarenone/Vit E Acetate [Co Q-10 100 Mg Softgel]) PO SCH (10:15)
[2018-07-09] MEDS: Diltiazem CD (24hr) 120 MG CAPSULE PO SCH (10:15)
[2018-07-09] MEDS: Multivit/Ca/Min/Fe/FA 1 TAB TABLET PO SCH (10:15)
[2018-07-09] MEDS: Cholecalciferol (D-3) 1,000 UNIT TABLET PO SCH (10:15)
[2018-07-09] MEDS: Cyanocobalamin (B-12) 1,000 MCG TABLET PO SCH (10:15)
[2018-07-09] MEDS: Magnesium Oxide 400 MG TABLET PO SCH ×2 (10:15→20:46)
[2018-07-09] MEDS: Methyl Salicylate/Menthol 28 GM TUBE TP SCH (10:17)
--- NOTE | 2018-07-09 11:12 | Internal Med Progress Note ---
Date of Encounter: 07/09/18 Time of Encounter: 11:05 - Assessment and plan (1) Status post lumbar spinal fusion Current Visit: No Status: Acute Assessment and plan: July 05. Continue therapy intervention and analgesics. Discontinue Neurontin and start Cymbalta. July 07. Continue therapy and analgesics with Cymbalta. (2) Anemia Current Visit: Yes Status: Acute Assessment and plan: July 05. Anemia testing showed iron 11, transferrin saturation 5%, transferrin 162, ferritin 572, B12 669, and folate 21.4. Continue ferrous sulfate and ascorbic acid. July 07. Continue ferrous sulfate and ascorbic acid. Omeprazole was discontinued to facilitate absorption. Maalox will be available on a prn basis. Qualifiers: Anemia type: unspecified type Qualified Code(s): D64.9 - Anemia, unspecified (3) HTN (hypertension) Current Visit: No Status: Chronic Assessment and plan: July 05. Continue lisinopril. Qualifiers: Hypertension type: essential hypertension Qualified Code(s): I10 - Essential (primary) hypertension (4) Gout Current Visit: No Status: Chronic Assessment and plan: July 05. Uric acid level normal at 3.8. Qualifiers: Gout site: unspecified site Gout etiology: unspecified cause Chronicity: unspecified Qualified Code(s): M10.9 - Gout, unspecified (5) Atrial fibrillation Current Visit: No Status: Chronic Assessment and plan: July 05. Continue Rythmol and Xarelto. Qualifiers: Atrial fibrillation type: paroxysmal Qualified Code(s): I48.0 - Paroxysmal atrial fibrillation - Subjective Interval history: July 05. She has no new complaints. She feels the Neurontin is making her feel abnormal and does not wish to take it. July 07. She has no new complaints. She states she is tolerating the Cymbalta well and feels overall in less pain. July 09. She has no new complaints and feels she is gradually improving. - Constitutional Vitals: Temp Pulse Resp BP Pulse Ox 97.6 F 64 17 126/54 96 07/09/18 07:07 07/09/18 07:07 07/09/18 07:07 07/09/18 07:07 07/09/18 07:07 Exam: She is resting comfortably in bed and appears in no acute distress. Her affect is bright and cheerful. I reviewed her medications and lab results. Internal Medicine: Result - Labs CBC & Chem 7: 07/08/18 06:27 07/04/18 05:40 - ABG Interpretation ABG results: PT/INR, D-dimer PT 16.8 Seconds (9.4-12.1) H 07/04/18 05:40 Consult Discharge Plan - Plan Referrals: Nelson Little DO [Primary Care Provider] - 1 week
[2018-07-09] MEDS: Mag Hydrox/Al Hydrox/Simeth 30 ML UDC PO PRN (11:32)
[2018-07-09] MEDS: *HR* Rivaroxaban 10 MG TABLET PO SCH (17:35)
[2018-07-09] MEDS: Loratadine 10 MG TABLET PO SCH (20:46)
[2018-07-10] MEDS: *HR* OxyCODONE/APAP 5/325 TABLET PO PRN ×4 (05:44→20:18)
[2018-07-10] MEDS: Ascorbic Acid 500 MG TABLET PO SCH (05:44)
[2018-07-10] MEDS: Diltiazem CD (24hr) 120 MG CAPSULE PO SCH (09:00)
[2018-07-10] MEDS: Methyl Salicylate/Menthol 28 GM TUBE TP SCH (09:03)
[2018-07-10] MEDS: Magnesium Oxide 400 MG TABLET PO SCH ×2 (09:05→20:18)
[2018-07-10] MEDS: (Ubidecarenone/Vit E Acetate [Co Q-10 100 Mg Softgel]) PO SCH (09:06)
[2018-07-10] MEDS: Multivit/Ca/Min/Fe/FA 1 TAB TABLET PO SCH (09:07)
[2018-07-10] MEDS: Cyanocobalamin (B-12) 1,000 MCG TABLET PO SCH (09:08)
[2018-07-10] MEDS: Cholecalciferol (D-3) 1,000 UNIT TABLET PO SCH (09:09)
[2018-07-10] MEDS: Mag Hydrox/Al Hydrox/Simeth 30 ML UDC PO PRN ×2 (09:15→18:42)
[2018-07-10] MEDS: *HR* Rivaroxaban 10 MG TABLET PO SCH (18:10)
[2018-07-10] MEDS: *HR* FentaNYL PATCH 12 MCG PATCH TD SCH (18:10)
[2018-07-10] MEDS: Loratadine 10 MG TABLET PO SCH (20:18)
[2018-07-11] MEDS: *HR* OxyCODONE/APAP 5/325 TABLET PO PRN ×5 (00:16→22:58)
[2018-07-11] MEDS: Ascorbic Acid 500 MG TABLET PO SCH (06:19)
[2018-07-11] MEDS: Magnesium Oxide 400 MG TABLET PO SCH ×2 (09:55→20:30)
[2018-07-11] MEDS: Mag Hydrox/Al Hydrox/Simeth 30 ML UDC PO PRN (09:55)
[2018-07-11] MEDS: Cholecalciferol (D-3) 1,000 UNIT TABLET PO SCH (09:56)
[2018-07-11] MEDS: Multivit/Ca/Min/Fe/FA 1 TAB TABLET PO SCH (09:56)
[2018-07-11] MEDS: Cyanocobalamin (B-12) 1,000 MCG TABLET PO SCH (09:56)
[2018-07-11] MEDS: Diltiazem CD (24hr) 120 MG CAPSULE PO SCH (09:56)
[2018-07-11] MEDS: (Ubidecarenone/Vit E Acetate [Co Q-10 100 Mg Softgel]) PO SCH (09:57)
[2018-07-11] MEDS: Methyl Salicylate/Menthol 28 GM TUBE TP SCH (10:13)
[2018-07-11] MEDS: *HR* Rivaroxaban 10 MG TABLET PO SCH (18:16)
[2018-07-11] MEDS: Loratadine 10 MG TABLET PO SCH (20:29)
[2018-07-12] MEDS: *HR* OxyCODONE/APAP 5/325 TABLET PO PRN ×5 (04:03→23:16)
[2018-07-12] MEDS: Ascorbic Acid 500 MG TABLET PO SCH (06:21)
[2018-07-12] MEDS: Multivit/Ca/Min/Fe/FA 1 TAB TABLET PO SCH (09:55)
[2018-07-12] MEDS: Magnesium Oxide 400 MG TABLET PO SCH ×2 (09:55→21:46)
[2018-07-12] MEDS: Cholecalciferol (D-3) 1,000 UNIT TABLET PO SCH (09:55)
[2018-07-12] MEDS: Cyanocobalamin (B-12) 1,000 MCG TABLET PO SCH (09:56)
[2018-07-12] MEDS: Diltiazem CD (24hr) 120 MG CAPSULE PO SCH (09:56)
[2018-07-12] MEDS: Methyl Salicylate/Menthol 28 GM TUBE TP SCH (09:57)
[2018-07-12] MEDS: Mag Hydrox/Al Hydrox/Simeth 30 ML UDC PO PRN ×2 (14:22→18:33)
--- NOTE | 2018-07-12 15:53 | Internal Med Progress Note ---
Date of Encounter: 07/12/18 Time of Encounter: 15:45 - Assessment and plan (1) Status post lumbar spinal fusion Current Visit: No Status: Acute Assessment and plan: July 05. Continue therapy intervention and analgesics. Discontinue Neurontin and start Cymbalta. July 07. Continue therapy and analgesics with Cymbalta. July 12. Continue present regimen. She has a follow-up appointment with the spine surgeon staff tomorrow. (2) Anemia Current Visit: Yes Status: Acute Assessment and plan: July 05. Anemia testing showed iron 11, transferrin saturation 5%, transferrin 162, ferritin 572, B12 669, and folate 21.4. Continue ferrous sulfate and ascorbic acid. July 07. Continue ferrous sulfate and ascorbic acid. Omeprazole was discontinued to facilitate absorption. Maalox will be available on a prn basis. Qualifiers: Anemia type: unspecified type Qualified Code(s): D64.9 - Anemia, unspecified (3) HTN (hypertension) Current Visit: No Status: Chronic Assessment and plan: July 05. Continue lisinopril. Qualifiers: Hypertension type: essential hypertension Qualified Code(s): I10 - Essential (primary) hypertension (4) Gout Current Visit: No Status: Chronic Assessment and plan: July 05. Uric acid level normal at 3.8. Qualifiers: Gout site: unspecified site Gout etiology: unspecified cause Chronicity: unspecified Qualified Code(s): M10.9 - Gout, unspecified (5) Atrial fibrillation Current Visit: No Status: Chronic Assessment and plan: July 05. Continue Rythmol and Xarelto. Qualifiers: Atrial fibrillation type: paroxysmal Qualified Code(s): I48.0 - Paroxysmal atrial fibrillation - Subjective Interval history: July 05. She has no new complaints. She feels the Neurontin is making her feel abnormal and does not wish to take it. July 07. She has no new complaints. She states she is tolerating the Cymbalta well and feels overall in less pain. July 09. She has no new complaints and feels she is gradually improving. July 12. She has no new complaints and feels improved. - Constitutional Vitals: Temp Pulse Resp BP Pulse Ox 97.6 F 62 16 130/59 96 07/12/18 06:48 07/12/18 06:48 07/12/18 06:48 07/12/18 06:48 07/12/18 06:48 Exam: She is resting comfortably in bed and appears in no acute distress. Her affect is bright and cheerful. I reviewed her medications and lab results. Internal Medicine: Result - Labs CBC & Chem 7: 07/08/18 06:27 07/04/18 05:40 - ABG Interpretation ABG results: PT/INR, D-dimer PT 16.8 Seconds (9.4-12.1) H 07/04/18 05:40 Consult Discharge Plan - Plan Referrals: Nelson Little DO [Primary Care Provider] - 1 week
[2018-07-12] MEDS: *HR* Rivaroxaban 10 MG TABLET PO SCH (18:29)
[2018-07-12] MEDS: Loratadine 10 MG TABLET PO SCH (21:46)
[2018-07-13] MEDS: Ascorbic Acid 500 MG TABLET PO SCH (06:58)
[2018-07-13] MEDS: *HR* OxyCODONE/APAP 5/325 TABLET PO PRN ×4 (07:14→22:38)
[2018-07-13] MEDS: Mag Hydrox/Al Hydrox/Simeth 30 ML UDC PO PRN ×3 (09:48→22:47)
[2018-07-13] MEDS: Cholecalciferol (D-3) 1,000 UNIT TABLET PO SCH (09:57)
[2018-07-13] MEDS: Magnesium Oxide 400 MG TABLET PO SCH ×2 (09:57→22:36)
[2018-07-13] MEDS: Cyanocobalamin (B-12) 1,000 MCG TABLET PO SCH (09:57)
[2018-07-13] MEDS: Diltiazem CD (24hr) 120 MG CAPSULE PO SCH (09:57)
[2018-07-13] MEDS: Multivit/Ca/Min/Fe/FA 1 TAB TABLET PO SCH (09:58)
[2018-07-13] MEDS: Methyl Salicylate/Menthol 28 GM TUBE TP SCH (10:00)
[2018-07-13] MEDS: *HR* Rivaroxaban 10 MG TABLET PO SCH (16:55)
[2018-07-13] MEDS: *HR* FentaNYL PATCH 12 MCG PATCH TD SCH ×2 (17:34→17:43)
[2018-07-13] MEDS: Loratadine 10 MG TABLET PO SCH (22:36)
[2018-07-14] MEDS: Ascorbic Acid 500 MG TABLET PO SCH (06:29)
[2018-07-14] MEDS: *HR* OxyCODONE/APAP 5/325 TABLET PO PRN ×3 (06:30→21:08)
[2018-07-14] MEDS: Magnesium Oxide 400 MG TABLET PO SCH ×2 (08:39→21:08)
[2018-07-14] MEDS: Cholecalciferol (D-3) 1,000 UNIT TABLET PO SCH (08:39)
[2018-07-14] MEDS: Diltiazem CD (24hr) 120 MG CAPSULE PO SCH (08:39)
[2018-07-14] MEDS: Cyanocobalamin (B-12) 1,000 MCG TABLET PO SCH (08:39)
[2018-07-14] MEDS: Multivit/Ca/Min/Fe/FA 1 TAB TABLET PO SCH (08:39)
[2018-07-14] MEDS: Mag Hydrox/Al Hydrox/Simeth 30 ML UDC PO PRN (08:40)
[2018-07-14] MEDS: Methyl Salicylate/Menthol 28 GM TUBE TP SCH (08:40)
--- NOTE | 2018-07-14 15:12 | Internal Med Progress Note ---
Date of Encounter: 07/14/18 Time of Encounter: 15:05 - Assessment and plan (1) Status post lumbar spinal fusion Current Visit: No Status: Acute Assessment and plan: July 05. Continue therapy intervention and analgesics. Discontinue Neurontin and start Cymbalta. July 07. Continue therapy and analgesics with Cymbalta. July 12. Continue present regimen. She has a follow-up appointment with the spine surgeon staff tomorrow. July 14. She reports sutures were removed at the spine surgeon's office visit yesterday. She anticipates discharge home tomorrow. (2) Anemia Current Visit: Yes Status: Acute Assessment and plan: July 05. Anemia testing showed iron 11, transferrin saturation 5%, transferrin 162, ferritin 572, B12 669, and folate 21.4. Continue ferrous sulfate and ascorbic acid. July 07. Continue ferrous sulfate and ascorbic acid. Omeprazole was discontinued to facilitate absorption. Maalox will be available on a prn basis. July 14. Continue ferrous sulfate and ascorbic acid. Qualifiers: Anemia type: unspecified type Qualified Code(s): D64.9 - Anemia, unspecified (3) HTN (hypertension) Current Visit: No Status: Chronic Assessment and plan: July 05. Continue lisinopril. Qualifiers: Hypertension type: essential hypertension Qualified Code(s): I10 - Essential (primary) hypertension (4) Gout Current Visit: No Status: Acute Assessment and plan: July 05. Uric acid level normal at 3.8. Qualifiers: Gout site: unspecified site Gout etiology: unspecified cause Chronicity: unspecified Qualified Code(s): M10.9 - Gout, unspecified (5) Atrial fibrillation Current Visit: No Status: Chronic Assessment and plan: July 05. Continue Rythmol and Xarelto. Qualifiers: Atrial fibrillation type: paroxysmal Qualified Code(s): I48.0 - Paroxysmal atrial fibrillation (6) GERD (gastroesophageal reflux disease) Current Visit: Yes Status: Chronic Assessment and plan: July 14. Remains symptomatic despite use of Mylanta/Maalox and Tums. Will add Zantac. Qualifiers: Esophagitis presence: esophagitis presence not specified Qualified Code(s): K21.9 - Gastro-esophageal reflux disease without esophagitis - Subjective Interval history: July 05. She has no new complaints. She feels the Neurontin is making her feel abnormal and does not wish to take it. July 07. She has no new complaints. She states she is tolerating the Cymbalta well and feels overall in less pain. July 09. She has no new complaints and feels she is gradually improving. July 12. She has no new complaints and feels improved. July 14. She has occasional GERD symptoms. - Constitutional Vitals: Temp Pulse Resp BP Pulse Ox 97.5 F L 71 16 126/73 96 07/14/18 06:57 07/14/18 06:57 07/14/18 06:57 07/14/18 06:57 07/14/18 11:12 Exam: She is resting comfortably in bed and appears in no acute distress. Her affect is bright and cheerful. I reviewed her medications and past lab results. Internal Medicine: Result - Labs CBC & Chem 7: 07/08/18 06:27 07/04/18 05:40 - ABG Interpretation ABG results: PT/INR, D-dimer PT 16.8 Seconds (9.4-12.1) H 07/04/18 05:40 Consult Discharge Plan - Plan Referrals: Nelson Little DO [Primary Care Provider] - 1 week
[2018-07-14] MEDS: Famotidine 20 MG TABLET PO PRN (15:45)
[2018-07-14] MEDS: *HR* Rivaroxaban 10 MG TABLET PO SCH (17:32)
[2018-07-14] MEDS: Loratadine 10 MG TABLET PO SCH (21:07)
[2018-07-15] MEDS: *HR* OxyCODONE/APAP 5/325 TABLET PO PRN ×2 (05:38→12:53)
[2018-07-15] MEDS: Ascorbic Acid 500 MG TABLET PO SCH (05:38)
[2018-07-15 05:59] LABS: Basophils # 0.1 K/mcL (0.0-0.2); Basophils % 0.8 %; Eosinophils # 0.3 K/mcL (0.0-0.6); Eosinophils % 4.6 %; Hematocrit 30.7 % (35.3-44.9); Hemoglobin 9.5 g/dL (11.5-15.4); Immature Granulocytes % 0.5 % (0-4); Lymphocytes % 15.1 %; Mean Corpuscular HGB Conc 30.9 g/dL (31.6-35.5); Mean Corpuscular Hemoglobin 28.6 pg (28.0-33.3); Mean Corpuscular Volume 92.5 fL (83.0-100.0); Mean Platelet Volume 11.5 fL (9.4-12.4); Monocytes # 0.6 K/mcL (0.0-1.3); Monocytes % 9.9 %; Neutrophils # 4.4 K/mcL (1.6-8.9); Platelet Count 300 K/mcL (140-400); Red Blood Count 3.32 M/mcL (3.82-4.97); Red Cell Distribution Width 14.2 % (11.5-14.5); Segmented Neutrophils % 69.1 %
[2018-07-15 06:37] LABS: BUN/Creatinine Ratio 26 (6-26); Blood Urea Nitrogen 20 mg/dL (8-23); Calcium 9.1 mg/dL (8.6-10.3); Carbon Dioxide 30 mEq/L (23-29); Chloride 102 mEq/L (98-107); Glucose 104 mg/dL (70-105); Magnesium 2.2 mg/dL (1.6-2.6); Osmolality,Calculated 293 (280-300); Potassium 4.5 mEq/L (3.5-5.1); Sodium 140 mEq/L (136-145); eGFR For Non-African Americans > 60 (> 60)
[2018-07-15] MEDS: Diltiazem CD (24hr) 120 MG CAPSULE PO SCH (08:57)
[2018-07-15] MEDS: Magnesium Oxide 400 MG TABLET PO SCH (08:57)
[2018-07-15] MEDS: Multivit/Ca/Min/Fe/FA 1 TAB TABLET PO SCH (08:57)
[2018-07-15] MEDS: Cholecalciferol (D-3) 1,000 UNIT TABLET PO SCH (08:58)
[2018-07-15] MEDS: Famotidine 20 MG TABLET PO PRN (08:58)
[2018-07-15] MEDS: Cyanocobalamin (B-12) 1,000 MCG TABLET PO SCH (08:58)
[2018-07-15] MEDS: Methyl Salicylate/Menthol 28 GM TUBE TP SCH (08:58)
[2018-07-15 09:18] VITALS: BP 126/78
--- NOTE | 2018-07-15 11:12 | Discharge Summary ---
Date of Encounter: 07/15/18 Time of Encounter: 10:55 - Discharge Diagnosis (1) Status post lumbar spinal fusion Priority: Primary Status: Acute (2) Anemia Priority: Secondary Status: Acute Qualifiers: Anemia type: unspecified type Qualified Code(s): D64.9 - Anemia, unspecified (3) HTN (hypertension) Priority: Secondary Status: Chronic Qualifiers: Hypertension type: essential hypertension Qualified Code(s): I10 - Essential (primary) hypertension (4) Gout Priority: Secondary Status: Acute Qualifiers: Gout site: unspecified site Gout etiology: unspecified cause Chronicity: unspecified Qualified Code(s): M10.9 - Gout, unspecified (5) Atrial fibrillation Priority: Secondary Status: Chronic Qualifiers: Atrial fibrillation type: paroxysmal Qualified Code(s): I48.0 - Paroxysmal atrial fibrillation (6) GERD (gastroesophageal reflux disease) Priority: Secondary Status: Chronic Qualifiers: Esophagitis presence: esophagitis presence not specified Qualified Code(s): K21.9 - Gastro-esophageal reflux disease without esophagitis Hospital course: Ms. Becker is a 68 year old female who underwent elective L2/L3 laminectomy and L4-S1 interbody fusion by Dr. Eugene at [facility] for chronic back pain. Her postop course was unremarkable and she was discharged [facility] swing bed for rehabilitation therapy prior to returning to independent living. Initial orders were written by the discharging physicians at [facility]. I saw her on July 04 and performed a swing bed history and physical. She had physical therapy and occupational therapy evaluations with ongoing intervention. Analgesics were given on a scheduled and prn basis. She made satisfactory progress. She had a follow-up visit with her orthopedist on July 13 and sutures were removed. On July 15 she was stable for discharge home. Anemia testing showed iron 11, transferrin saturation 5%, transferrin 162, ferritin 572, B12 669, and folate 21.4. She will remain on ferrous sulfate. Ascorbic acid was added and Nexium was discontinued to facilitate absorption. She had some GERD symptoms which responded to Mylanta and Pepcid. These will be continued at discharge. Her blood pressure remained satisfactorily controlled on lisinopril. She will remain off HCTZ. She will follow with her PCP Dr. Nelson Little within 1 week and with her spine surgeon as directed. - Time Spent with Patient Total time spent providing and/or coordinating discharge services: - Discharge Medications Prescriptions: Ascorbic Acid [Vitamin C] 500 mg PO Q24H #30 tablet Famotidine [Pepcid] 20 mg PO BID PRN #60 tablet PRN Reason: Dyspepsia Home Medications: Allopurinol [Zyloprim 100 MG] 100 mg PO DAILY 10/26/17 [History] Ascorbate Calcium [Vitamin C] 500 mg PO DAILY 10/26/17 [History] C,E,Zinc,Copper 11/Pojng6w/Lut [Ocuvite Adult 50 Plus Softgel] 1 cap PO DAILY 10/26/17 [History] Calcium Carbonate/Vitamin D3 [Calcium 600 + Vit D Tablet] 1 tab PO DAILY 10/26/17 [History] Cetirizine HCl [Zyrtec] 10 mg PO DAILY 10/26/17 [History] Ferrous Sulfate [Iron] 325 mg PO DAILY 10/26/17 [History] Fluticasone Propionate Nasal [Flonase] 1 spr NS DAILY PRN 10/26/17 [History] Magnesium Oxide [Magnesium] 400 mg PO BID 10/26/17 [History] Multivitamin [One Daily Multivitamin] 1 tab PO DAILY 10/26/17 [History] [place]-3S/Dha/Epa/Fish Oil [Fish Oil 1,200 mg Softgel] 1 cap PO BID 10/26/17 [History] Sertraline [Zoloft] 100 mg PO DAILY 10/26/17 [History] Ubidecarenone/Vit E Acetate [Co Q-10 100 mg Softgel] 1 cap PO DAILY 10/26/17 [History] dilTIAZem HCl [Diltiazem 24Hr ER] 120 mg PO DAILY 10/26/17 [History] Cyanocobalamin (B-12) [Vitamin B12] 1,000 mcg PO DAILY #30 tablet 11/11/17 [Rx] Albuterol Sulfate [Ventolin Hfa] 2 puff IH Q4H PRN 06/29/18 [History] Meclizine HCl [Verticalm] 25 mg PO BID PRN 06/29/18 [History] Montelukast [Singulair] 10 mg PO DAILY 06/29/18 [History] Propafenone [Rhythmol] 150 mg PO TID 06/29/18 [History] Quinapril HCl [Accupril] 5 - 10 mg PO DAILY 06/29/18 [History] Rivaroxaban [Xarelto] 20 mg PO DAILY 06/29/18 [History] hydroCHLOROthiazide [Hydrochlorothiazide] 12.5 mg PO DAILY 06/29/18 [History] Atorvastatin [Lipitor] 40 mg PO HS 06/30/18 [History] Ascorbic Acid [Vitamin C] 500 mg PO Q24H #30 tablet 07/15/18 [Rx] Famotidine [Pepcid] 20 mg PO BID PRN #60 tablet 07/15/18 [Rx] Allergies/Adverse Reactions: Allergy/AdvReac Type Severity Reaction Status Date / Time pregabalin [From Lyrica] Allergy SWELLING Verified 06/23/18 10:43 amitriptyline AdvReac UNSURE Verified 06/23/18 10:43 Date of admission: 07/03/18 19:21 Primary care physician: Nelson Little DO Consults: 07/03/18 17:46 Consult to Occupational Therapy [CONS] Routine Comment: eval, develop and implement POC Reason for Consult: eval, develop and implement POC up as tolerated with brace and walker brace required with all activity No brace needed in bed or chair Does patient have active BEDREST order?: No Is patient medically & hemodynamically stable?: Yes Consult to Physical Therapy [CONS] Routine Comment: eval, develop and implement POC Reason for Consult: eval, develop and implement POC up as tolerated with brace and walker Brace required with all activity No brace needed in chair or bed Does patient have active BEDREST order?: No Is patient medically & hemodynamically stable?: Yes Consult to [employer] Director [CONS] Routine Reason for SW Consult: may need HH upon discharge - Constitutional Vitals: Temp Pulse Resp BP Pulse Ox 97.7 F 76 18 126/78 98 07/15/18 09:17 07/15/18 09:17 07/15/18 09:17 07/15/18 09:17 07/15/18 09:17 - Patient Status Disposition: Home, Self-Care - Discharge Instructions Follow Up With: Nelson Little DO [Primary Care Provider] - 1 week - Diet and Activity Activity: as per physical therapy Diet: diabetic diet
== END 2018-07-15 13:13 | disposition home or self-care (01) | DRG 949 ==
LOC: INPPIK 07-03 19:21
PROVIDERS: ADMIT Internal Medicine; ATTEND Internal Medicine

== ENCOUNTER 2020-09-22 15:22 | Inpatient (IN) ==
[2020-09-22] MEDS: *HR* OxyCODONE Immed Rel 5 MG TABLET PO PRN ×2 (17:55→23:48)
[2020-09-22] MEDS: Magnesium Oxide 400 MG TABLET PO SCH (21:07)
[2020-09-22] MEDS: Sennosides/Docusate Sodium TABLET PO SCH (21:07)
[2020-09-22] MEDS: Acetaminophen 325 MG TABLET PO PRN (21:07)
[2020-09-22] MEDS: FISH OIL PO SCH (21:08)
[2020-09-22] MEDS: Saline Nasal Spray 44 ML BOTTLE NS PRN (21:08)
[2020-09-22] MEDS: [UNRECOGNIZED DRUG - OTHER] PO SCH (21:08)
[2020-09-22] MEDS: OCUVITE ADULT PO SCH (21:08)
[2020-09-23] MEDS: Acetaminophen 325 MG TABLET PO PRN ×2 (03:45→22:00)
[2020-09-23] MEDS: *HR* OxyCODONE Immed Rel 5 MG TABLET PO PRN ×3 (06:29→20:26)
[2020-09-23 07:11] LABS: Basophils % 0.5 %; Eosinophils # 0.3 K/mcL (0.0-0.6); Eosinophils % 3.9 %; Hematocrit 30.7 % (35.3-44.9); Hemoglobin 9.6 g/dL (11.5-15.4); Immature Granulocytes % 1.1 % (0-4); Lymphocytes # 1.1 K/mcL (0.6-4.6); Lymphocytes % 17.1 %; Mean Corpuscular HGB Conc 31.3 g/dL (31.6-35.5); Mean Corpuscular Hemoglobin 28.9 pg (28.0-33.3); Mean Corpuscular Volume 92.5 fL (83.0-100.0); Mean Platelet Volume 12.4 fL (9.4-12.4); Monocytes # 0.7 K/mcL (0.0-1.3); Monocytes % 11.4 %; Neutrophils # 4.3 K/mcL (1.6-8.9); Platelet Count 169 K/mcL (140-400); Red Blood Count 3.32 M/mcL (3.82-4.97); White Blood Count 6.4 K/mcL (4.3-11.1)
[2020-09-23 08:11] LABS: BUN/Creatinine Ratio 36 (6-26); Blood Urea Nitrogen 35 mg/dL (8-23); Carbon Dioxide 31 mEq/L (23-29); Chloride 102 mEq/L (98-107); Glucose 118 mg/dL (70-105); Osmolality,Calculated 297 (280-300); Potassium 3.7 mEq/L (3.5-5.1); Sodium 139 mEq/L (136-145); eGFR For African Americans > 60 (> 60); eGFR For Non-African Americans 57 (> 60)
[2020-09-23] MEDS ORDERED: NON-FORMULARY MEDICATION 1 EACH EACH (Multivitamin [One Daily Multivitamin] 1 EACH Tablet) PO SCH (09:00)
[2020-09-23] MEDS: Cholecalciferol (D-3) 1,000 UNIT (25MCG) TABLET PO SCH (09:28)
[2020-09-23] MEDS: Loratadine 10 MG TABLET PO SCH (09:28)
[2020-09-23] MEDS: Magnesium Oxide 400 MG TABLET PO SCH ×2 (09:28→20:25)
[2020-09-23] MEDS: Sennosides/Docusate Sodium TABLET PO SCH ×2 (09:28→20:25)
[2020-09-23] MEDS: DilTIAZem CD (24hr) 120 MG CAP.ER.24H PO SCH (09:29)
[2020-09-23] MEDS: Ascorbic Acid 500 MG TABLET PO SCH (09:29)
[2020-09-23] MEDS: *HR* Rivaroxaban 10 MG TABLET PO SCH (09:29)
[2020-09-23] MEDS: hydroCHLOROthiazide 25 MG TABLET PO SCH (09:29)
[2020-09-23] MEDS: Cyanocobalamin (B-12) 1,000 MCG TABLET PO SCH (09:29)
[2020-09-23] MEDS: allopurinoL 100 MG TABLET PO SCH (09:30)
[2020-09-23] MEDS: Multivit/Ca/Min/Fe/FA 1 TAB TABLET PO SCH (09:30)
[2020-09-23] MEDS: Fluticasone Propionate Nasal 50 MCG/SPRAY BOTTLE NS SCH (09:30)
[2020-09-23] MEDS: (Ubidecarenone [Coq10] 50 MG Tab.Chew) PO SCH (09:30)
[2020-09-23] MEDS: OCUVITE ADULT PO SCH ×2 (09:31→20:26)
[2020-09-23] MEDS: FISH OIL PO SCH ×2 (09:31→20:26)
[2020-09-23] MEDS: [UNRECOGNIZED DRUG - OTHER] PO SCH ×2 (09:31→20:26)
[2020-09-23] MEDS: Saline Nasal Spray 44 ML BOTTLE NS PRN ×2 (13:22→20:33)
[2020-09-24] MEDS: *HR* OxyCODONE Immed Rel 5 MG TABLET PO PRN ×4 (02:48→22:54)
[2020-09-24] MEDS: Acetaminophen 325 MG TABLET PO PRN ×2 (06:10→19:53)
[2020-09-24] MEDS: *HR* Rivaroxaban 10 MG TABLET PO SCH (08:30)
[2020-09-24] MEDS: Ascorbic Acid 500 MG TABLET PO SCH (08:30)
[2020-09-24] MEDS: Cyanocobalamin (B-12) 1,000 MCG TABLET PO SCH (08:31)
[2020-09-24] MEDS: allopurinoL 100 MG TABLET PO SCH (08:31)
[2020-09-24] MEDS: Loratadine 10 MG TABLET PO SCH (08:31)
[2020-09-24] MEDS: hydroCHLOROthiazide 25 MG TABLET PO SCH (08:31)
[2020-09-24] MEDS: Cholecalciferol (D-3) 1,000 UNIT (25MCG) TABLET PO SCH (08:32)
[2020-09-24] MEDS: Magnesium Oxide 400 MG TABLET PO SCH ×2 (08:32→19:53)
[2020-09-24] MEDS: Multivit/Ca/Min/Fe/FA 1 TAB TABLET PO SCH (08:32)
[2020-09-24] MEDS: Sennosides/Docusate Sodium TABLET PO SCH ×2 (08:32→19:53)
[2020-09-24] MEDS: [UNRECOGNIZED DRUG - OTHER] PO SCH ×2 (08:33→19:54)
[2020-09-24] MEDS: (Ubidecarenone [Coq10] 50 MG Tab.Chew) PO SCH (08:33)
[2020-09-24] MEDS: FISH OIL PO SCH ×2 (08:33→19:54)
[2020-09-24] MEDS: DilTIAZem CD (24hr) 120 MG CAP.ER.24H PO SCH (08:33)
[2020-09-24] MEDS: OCUVITE ADULT PO SCH ×2 (08:33→19:54)
[2020-09-24] MEDS: Fluticasone Propionate Nasal 50 MCG/SPRAY BOTTLE NS SCH (08:34)
[2020-09-24] MEDS: Triamcinolone Acet 0.1% CRM 15 GM TUBE TP SCH ×2 (16:00→19:53)
[2020-09-25] MEDS: *HR* Rivaroxaban 10 MG TABLET PO SCH (08:35)
[2020-09-25] MEDS: DilTIAZem CD (24hr) 120 MG CAP.ER.24H PO SCH (08:35)
[2020-09-25] MEDS: Magnesium Oxide 400 MG TABLET PO SCH ×2 (08:35→20:24)
[2020-09-25] MEDS: Cholecalciferol (D-3) 1,000 UNIT (25MCG) TABLET PO SCH (08:35)
[2020-09-25] MEDS: Sennosides/Docusate Sodium TABLET PO SCH ×2 (08:35→20:24)
[2020-09-25] MEDS: Loratadine 10 MG TABLET PO SCH (08:35)
[2020-09-25] MEDS: hydroCHLOROthiazide 25 MG TABLET PO SCH (08:35)
[2020-09-25] MEDS: Cyanocobalamin (B-12) 1,000 MCG TABLET PO SCH (08:36)
[2020-09-25] MEDS: Saline Nasal Spray 44 ML BOTTLE NS PRN (08:36)
[2020-09-25] MEDS: Multivit/Ca/Min/Fe/FA 1 TAB TABLET PO SCH (08:36)
[2020-09-25] MEDS: Ascorbic Acid 500 MG TABLET PO SCH (08:36)
[2020-09-25] MEDS: allopurinoL 100 MG TABLET PO SCH (08:36)
[2020-09-25] MEDS: OCUVITE ADULT PO SCH ×2 (08:37→20:26)
[2020-09-25] MEDS: [UNRECOGNIZED DRUG - OTHER] PO SCH ×2 (08:37→20:26)
[2020-09-25] MEDS: (Ubidecarenone [Coq10] 50 MG Tab.Chew) PO SCH (08:37)
[2020-09-25] MEDS: FISH OIL PO SCH ×2 (08:37→20:26)
[2020-09-25] MEDS: *HR* OxyCODONE Immed Rel 5 MG TABLET PO PRN ×3 (09:21→22:32)
[2020-09-25] MEDS: Fluticasone Propionate Nasal 50 MCG/SPRAY BOTTLE NS SCH (09:23)
[2020-09-25] MEDS: Acetaminophen 325 MG TABLET PO PRN ×2 (11:48→20:24)
[2020-09-25] MEDS: Triamcinolone Acet 0.1% CRM 15 GM TUBE TP SCH ×2 (11:49→20:25)
[2020-09-26] MEDS: Acetaminophen 325 MG TABLET PO PRN ×3 (03:47→21:04)
[2020-09-26 08:34] LABS: Basophils % 0.5 %; Eosinophils # 0.3 K/mcL (0.0-0.6); Eosinophils % 4.5 %; Hematocrit 29.3 % (35.3-44.9); Immature Granulocytes % 1.3 % (0-4); Lymphocytes # 1.1 K/mcL (0.6-4.6); Lymphocytes % 17.9 %; Mean Corpuscular HGB Conc 30.7 g/dL (31.6-35.5); Mean Corpuscular Hemoglobin 28.5 pg (28.0-33.3); Mean Corpuscular Volume 92.7 fL (83.0-100.0); Mean Platelet Volume 12.3 fL (9.4-12.4); Monocytes # 0.6 K/mcL (0.0-1.3); Neutrophils # 3.9 K/mcL (1.6-8.9); Platelet Count 205 K/mcL (140-400); Red Blood Count 3.16 M/mcL (3.82-4.97); Red Cell Distribution Width 14.1 % (11.5-14.5); Segmented Neutrophils % 65.8 %
[2020-09-26 08:56] LABS: BUN/Creatinine Ratio 35 (6-26); Blood Urea Nitrogen 28 mg/dL (8-23); Calcium 8.8 mg/dL (8.6-10.3); Carbon Dioxide 29 mEq/L (23-29); Chloride 102 mEq/L (98-107); Glucose 104 mg/dL (70-105); Osmolality,Calculated 296 (280-300); Potassium 3.6 mEq/L (3.5-5.1); Sodium 140 mEq/L (136-145); eGFR For African Americans > 60 (> 60); eGFR For Non-African Americans > 60 (> 60)
[2020-09-26] MEDS: allopurinoL 100 MG TABLET PO SCH (09:05)
[2020-09-26] MEDS: hydroCHLOROthiazide 25 MG TABLET PO SCH (09:05)
[2020-09-26] MEDS: Loratadine 10 MG TABLET PO SCH (09:06)
[2020-09-26] MEDS: Cholecalciferol (D-3) 1,000 UNIT (25MCG) TABLET PO SCH (09:06)
[2020-09-26] MEDS: Magnesium Oxide 400 MG TABLET PO SCH ×2 (09:06→21:02)
[2020-09-26] MEDS: *HR* Rivaroxaban 10 MG TABLET PO SCH (09:06)
[2020-09-26] MEDS: *HR* OxyCODONE Immed Rel 5 MG TABLET PO PRN ×3 (09:06→23:54)
[2020-09-26] MEDS: DilTIAZem CD (24hr) 120 MG CAP.ER.24H PO SCH (09:06)
[2020-09-26] MEDS: Multivit/Ca/Min/Fe/FA 1 TAB TABLET PO SCH (09:06)
[2020-09-26] MEDS: [UNRECOGNIZED DRUG - OTHER] PO SCH ×2 (09:07→21:05)
[2020-09-26] MEDS: OCUVITE ADULT PO SCH ×2 (09:07→21:05)
[2020-09-26] MEDS: Cyanocobalamin (B-12) 1,000 MCG TABLET PO SCH (09:07)
[2020-09-26] MEDS: Fluticasone Propionate Nasal 50 MCG/SPRAY BOTTLE NS SCH (09:07)
[2020-09-26] MEDS: Ascorbic Acid 500 MG TABLET PO SCH (09:07)
[2020-09-26] MEDS: Sennosides/Docusate Sodium TABLET PO SCH ×2 (09:07→21:02)
[2020-09-26] MEDS: (Ubidecarenone [Coq10] 50 MG Tab.Chew) PO SCH (09:07)
[2020-09-26] MEDS: FISH OIL PO SCH ×2 (09:07→21:05)
[2020-09-26] MEDS: Triamcinolone Acet 0.1% CRM 15 GM TUBE TP SCH ×2 (09:22→17:54)
[2020-09-27] MEDS: Triamcinolone Acet 0.1% CRM 15 GM TUBE TP SCH ×2 (09:02→20:31)
[2020-09-27] MEDS: *HR* Rivaroxaban 10 MG TABLET PO SCH (09:02)
[2020-09-27] MEDS: allopurinoL 100 MG TABLET PO SCH (09:02)
[2020-09-27] MEDS: Fluticasone Propionate Nasal 50 MCG/SPRAY BOTTLE NS SCH (09:02)
[2020-09-27] MEDS: Magnesium Oxide 400 MG TABLET PO SCH ×2 (09:04→20:30)
[2020-09-27] MEDS: Cholecalciferol (D-3) 1,000 UNIT (25MCG) TABLET PO SCH (09:04)
[2020-09-27] MEDS: *HR* OxyCODONE Immed Rel 5 MG TABLET PO PRN ×3 (09:04→22:49)
[2020-09-27] MEDS: Sennosides/Docusate Sodium TABLET PO SCH ×2 (09:05→20:30)
[2020-09-27] MEDS: Loratadine 10 MG TABLET PO SCH (09:05)
[2020-09-27] MEDS: Ascorbic Acid 500 MG TABLET PO SCH (09:05)
[2020-09-27] MEDS: hydroCHLOROthiazide 25 MG TABLET PO SCH (09:05)
[2020-09-27] MEDS: DilTIAZem CD (24hr) 120 MG CAP.ER.24H PO SCH (09:05)
[2020-09-27] MEDS: Multivit/Ca/Min/Fe/FA 1 TAB TABLET PO SCH (09:05)
[2020-09-27] MEDS: Cyanocobalamin (B-12) 1,000 MCG TABLET PO SCH (09:05)
[2020-09-27] MEDS: OCUVITE ADULT PO SCH ×2 (09:06→20:33)
[2020-09-27] MEDS: [UNRECOGNIZED DRUG - OTHER] PO SCH ×2 (09:06→20:33)
[2020-09-27] MEDS: FISH OIL PO SCH ×2 (09:06→20:32)
[2020-09-27] MEDS: (Ubidecarenone [Coq10] 50 MG Tab.Chew) PO SCH (09:06)
[2020-09-27] MEDS: Acetaminophen 325 MG TABLET PO PRN ×2 (14:27→20:30)
[2020-09-28] MEDS: Acetaminophen 325 MG TABLET PO PRN ×2 (03:29→19:47)
[2020-09-28] MEDS: Fluticasone Propionate Nasal 50 MCG/SPRAY BOTTLE NS SCH (08:11)
[2020-09-28] MEDS: Triamcinolone Acet 0.1% CRM 15 GM TUBE TP SCH ×2 (08:11→19:41)
[2020-09-28] MEDS: Multivit/Ca/Min/Fe/FA 1 TAB TABLET PO SCH (08:12)
[2020-09-28] MEDS: hydroCHLOROthiazide 25 MG TABLET PO SCH (08:12)
[2020-09-28] MEDS: Sennosides/Docusate Sodium TABLET PO SCH ×2 (08:12→19:42)
[2020-09-28] MEDS: Cyanocobalamin (B-12) 1,000 MCG TABLET PO SCH (08:12)
[2020-09-28] MEDS: Magnesium Oxide 400 MG TABLET PO SCH ×2 (08:12→19:41)
[2020-09-28] MEDS: Loratadine 10 MG TABLET PO SCH (08:13)
[2020-09-28] MEDS: allopurinoL 100 MG TABLET PO SCH (08:13)
[2020-09-28] MEDS: Cholecalciferol (D-3) 1,000 UNIT (25MCG) TABLET PO SCH (08:13)
[2020-09-28] MEDS: *HR* OxyCODONE Immed Rel 5 MG TABLET PO PRN ×2 (08:13→16:12)
[2020-09-28] MEDS: *HR* Rivaroxaban 10 MG TABLET PO SCH (08:13)
[2020-09-28] MEDS: DilTIAZem CD (24hr) 120 MG CAP.ER.24H PO SCH (08:13)
[2020-09-28] MEDS: Ascorbic Acid 500 MG TABLET PO SCH (08:13)
[2020-09-28] MEDS: (Ubidecarenone [Coq10] 50 MG Tab.Chew) PO SCH (08:14)
[2020-09-28] MEDS: FISH OIL PO SCH ×2 (08:14→19:50)
[2020-09-28] MEDS: [UNRECOGNIZED DRUG - OTHER] PO SCH ×2 (08:14→19:50)
[2020-09-28] MEDS: OCUVITE ADULT PO SCH ×2 (08:14→19:50)
[2020-09-29] MEDS: *HR* OxyCODONE Immed Rel 5 MG TABLET PO PRN ×3 (00:26→19:53)
[2020-09-29] MEDS: Acetaminophen 325 MG TABLET PO PRN ×2 (05:57→15:24)
[2020-09-29] MEDS: hydroCHLOROthiazide 25 MG TABLET PO SCH (09:13)
[2020-09-29] MEDS: Magnesium Oxide 400 MG TABLET PO SCH ×2 (09:13→19:52)
[2020-09-29] MEDS: Cyanocobalamin (B-12) 1,000 MCG TABLET PO SCH (09:13)
[2020-09-29] MEDS: Fluticasone Propionate Nasal 50 MCG/SPRAY BOTTLE NS SCH (09:13)
[2020-09-29] MEDS: Sennosides/Docusate Sodium TABLET PO SCH ×2 (09:14→19:52)
[2020-09-29] MEDS: DilTIAZem CD (24hr) 120 MG CAP.ER.24H PO SCH (09:15)
[2020-09-29] MEDS: allopurinoL 100 MG TABLET PO SCH (09:15)
[2020-09-29] MEDS: *HR* Rivaroxaban 10 MG TABLET PO SCH (09:15)
[2020-09-29] MEDS: Multivit/Ca/Min/Fe/FA 1 TAB TABLET PO SCH (09:15)
[2020-09-29] MEDS: Loratadine 10 MG TABLET PO SCH (09:15)
[2020-09-29] MEDS: Cholecalciferol (D-3) 1,000 UNIT (25MCG) TABLET PO SCH (09:15)
[2020-09-29] MEDS: Ascorbic Acid 500 MG TABLET PO SCH (09:16)
[2020-09-29] MEDS: (Ubidecarenone [Coq10] 50 MG Tab.Chew) PO SCH (09:17)
[2020-09-29] MEDS: [UNRECOGNIZED DRUG - OTHER] PO SCH ×2 (09:18→19:53)
[2020-09-29] MEDS: OCUVITE ADULT PO SCH ×2 (09:18→19:53)
[2020-09-29] MEDS: FISH OIL PO SCH ×2 (09:18→19:54)
[2020-09-29] MEDS: Triamcinolone Acet 0.1% CRM 15 GM TUBE TP SCH ×2 (09:19→19:54)
[2020-09-30] MEDS: Magnesium Oxide 400 MG TABLET PO SCH ×2 (08:36→19:44)
[2020-09-30] MEDS: Multivit/Ca/Min/Fe/FA 1 TAB TABLET PO SCH (08:36)
[2020-09-30] MEDS: Sennosides/Docusate Sodium TABLET PO SCH ×2 (08:36→19:44)
[2020-09-30] MEDS: Cholecalciferol (D-3) 1,000 UNIT (25MCG) TABLET PO SCH (08:37)
[2020-09-30] MEDS: Loratadine 10 MG TABLET PO SCH (08:37)
[2020-09-30] MEDS: allopurinoL 100 MG TABLET PO SCH (08:37)
[2020-09-30] MEDS: Ascorbic Acid 500 MG TABLET PO SCH (08:37)
[2020-09-30] MEDS: hydroCHLOROthiazide 25 MG TABLET PO SCH (08:37)
[2020-09-30] MEDS: *HR* Rivaroxaban 10 MG TABLET PO SCH (08:37)
[2020-09-30] MEDS: (Ubidecarenone [Coq10] 50 MG Tab.Chew) PO SCH (08:38)
[2020-09-30] MEDS: FISH OIL PO SCH ×2 (08:38→19:50)
[2020-09-30] MEDS: Fluticasone Propionate Nasal 50 MCG/SPRAY BOTTLE NS SCH (08:38)
[2020-09-30] MEDS: Cyanocobalamin (B-12) 1,000 MCG TABLET PO SCH (08:38)
[2020-09-30] MEDS: DilTIAZem CD (24hr) 120 MG CAP.ER.24H PO SCH (08:38)
[2020-09-30] MEDS: [UNRECOGNIZED DRUG - OTHER] PO SCH ×2 (08:39→19:50)
[2020-09-30] MEDS: OCUVITE ADULT PO SCH ×2 (08:39→19:50)
[2020-09-30] MEDS: Triamcinolone Acet 0.1% CRM 15 GM TUBE TP SCH ×2 (08:43→19:45)
[2020-09-30] MEDS: *HR* OxyCODONE Immed Rel 5 MG TABLET PO PRN ×2 (09:33→19:45)
[2020-09-30] MEDS: Acetaminophen 325 MG TABLET PO PRN (15:27)
[2020-10-01] MEDS: *HR* OxyCODONE Immed Rel 5 MG TABLET PO PRN ×3 (04:11→19:50)
[2020-10-01] MEDS: Sennosides/Docusate Sodium TABLET PO SCH ×2 (08:19→19:50)
[2020-10-01] MEDS: Cyanocobalamin (B-12) 1,000 MCG TABLET PO SCH (08:20)
[2020-10-01] MEDS: hydroCHLOROthiazide 25 MG TABLET PO SCH (08:20)
[2020-10-01] MEDS: Multivit/Ca/Min/Fe/FA 1 TAB TABLET PO SCH (08:20)
[2020-10-01] MEDS: Ascorbic Acid 500 MG TABLET PO SCH (08:20)
[2020-10-01] MEDS: DilTIAZem CD (24hr) 120 MG CAP.ER.24H PO SCH (08:20)
[2020-10-01] MEDS: allopurinoL 100 MG TABLET PO SCH (08:20)
[2020-10-01] MEDS: Cholecalciferol (D-3) 1,000 UNIT (25MCG) TABLET PO SCH (08:20)
[2020-10-01] MEDS: *HR* Rivaroxaban 10 MG TABLET PO SCH (08:20)
[2020-10-01] MEDS: Loratadine 10 MG TABLET PO SCH (08:20)
[2020-10-01] MEDS: [UNRECOGNIZED DRUG - OTHER] PO SCH ×2 (08:22→19:53)
[2020-10-01] MEDS: Triamcinolone Acet 0.1% CRM 15 GM TUBE TP SCH ×2 (08:22→19:51)
[2020-10-01] MEDS: (Ubidecarenone [Coq10] 50 MG Tab.Chew) PO SCH (08:22)
[2020-10-01] MEDS: FISH OIL PO SCH ×2 (08:22→19:53)
[2020-10-01] MEDS: Magnesium Oxide 400 MG TABLET PO SCH ×2 (08:22→19:50)
[2020-10-01] MEDS: OCUVITE ADULT PO SCH ×2 (08:22→19:53)
[2020-10-01] MEDS: Fluticasone Propionate Nasal 50 MCG/SPRAY BOTTLE NS SCH (08:26)
[2020-10-02] MEDS: Acetaminophen 325 MG TABLET PO PRN ×3 (00:11→22:20)
[2020-10-02] MEDS: hydroCHLOROthiazide 25 MG TABLET PO SCH (08:02)
[2020-10-02] MEDS: Fluticasone Propionate Nasal 50 MCG/SPRAY BOTTLE NS SCH (08:02)
[2020-10-02] MEDS: Cholecalciferol (D-3) 1,000 UNIT (25MCG) TABLET PO SCH (08:03)
[2020-10-02] MEDS: *HR* OxyCODONE Immed Rel 5 MG TABLET PO PRN ×2 (08:03→20:40)
[2020-10-02] MEDS: Magnesium Oxide 400 MG TABLET PO SCH ×2 (08:03→20:20)
[2020-10-02] MEDS: Ascorbic Acid 500 MG TABLET PO SCH (08:04)
[2020-10-02] MEDS: Loratadine 10 MG TABLET PO SCH (08:04)
[2020-10-02] MEDS: Sennosides/Docusate Sodium TABLET PO SCH ×2 (08:04→20:20)
[2020-10-02] MEDS: DilTIAZem CD (24hr) 120 MG CAP.ER.24H PO SCH (08:04)
[2020-10-02] MEDS: allopurinoL 100 MG TABLET PO SCH (08:05)
[2020-10-02] MEDS: *HR* Rivaroxaban 10 MG TABLET PO SCH (08:05)
[2020-10-02] MEDS: Cyanocobalamin (B-12) 1,000 MCG TABLET PO SCH (08:05)
[2020-10-02] MEDS: Multivit/Ca/Min/Fe/FA 1 TAB TABLET PO SCH (08:05)
[2020-10-02] MEDS: FISH OIL PO SCH ×2 (08:06→20:21)
[2020-10-02] MEDS: (Ubidecarenone [Coq10] 50 MG Tab.Chew) PO SCH (08:06)
[2020-10-02] MEDS: Triamcinolone Acet 0.1% CRM 15 GM TUBE TP SCH ×2 (08:06→20:21)
[2020-10-02] MEDS: [UNRECOGNIZED DRUG - OTHER] PO SCH ×2 (08:06→20:22)
[2020-10-02] MEDS: OCUVITE ADULT PO SCH ×2 (08:06→20:22)
[2020-10-03 06:27] VITALS: BP 115/57
[2020-10-03] MEDS: Fluticasone Propionate Nasal 50 MCG/SPRAY BOTTLE NS SCH (10:18)
[2020-10-03] MEDS: Multivit/Ca/Min/Fe/FA 1 TAB TABLET PO SCH (10:19)
[2020-10-03] MEDS: Cholecalciferol (D-3) 1,000 UNIT (25MCG) TABLET PO SCH (10:19)
[2020-10-03] MEDS: Acetaminophen 325 MG TABLET PO PRN (10:19)
[2020-10-03] MEDS: Ascorbic Acid 500 MG TABLET PO SCH (10:19)
[2020-10-03] MEDS: Cyanocobalamin (B-12) 1,000 MCG TABLET PO SCH (10:19)
[2020-10-03] MEDS: Loratadine 10 MG TABLET PO SCH (10:19)
[2020-10-03] MEDS: Magnesium Oxide 400 MG TABLET PO SCH (10:19)
[2020-10-03] MEDS: hydroCHLOROthiazide 25 MG TABLET PO SCH (10:19)
[2020-10-03] MEDS: DilTIAZem CD (24hr) 120 MG CAP.ER.24H PO SCH (10:19)
[2020-10-03] MEDS: Sennosides/Docusate Sodium TABLET PO SCH (10:19)
[2020-10-03] MEDS: allopurinoL 100 MG TABLET PO SCH (10:19)
[2020-10-03] MEDS: *HR* Rivaroxaban 10 MG TABLET PO SCH (10:22)
[2020-10-03] MEDS: *HR* OxyCODONE Immed Rel 5 MG TABLET PO PRN (10:22)
[2020-10-03] MEDS: FISH OIL PO SCH (10:23)
[2020-10-03] MEDS: [UNRECOGNIZED DRUG - OTHER] PO SCH (10:23)
[2020-10-03] MEDS: OCUVITE ADULT PO SCH (10:23)
[2020-10-03] MEDS: (Ubidecarenone [Coq10] 50 MG Tab.Chew) PO SCH (10:24)
[2020-10-03] MEDS: Triamcinolone Acet 0.1% CRM 15 GM TUBE TP SCH (10:25)
== END 2020-10-03 13:15 | disposition home health service (06) | DRG 560 ==
LOC: INPPIK 15:22
PROVIDERS: ADMIT Family Medicine; ATTEND Family Medicine